=== PATIENT | male | born 1985 | race Caucasian/White ===

== ENCOUNTER 2017-11-15 18:28 | Emergency (ER) | payer MEDICARE, MEDICAID, SELFPAY ==
[2017-11-15 18:38] VITALS: BP 157/100; PULSE 99; RESP 20; TEMP 36.6; O2SAT 97
[2017-11-15 20:13] VITALS: BP 156/97; PULSE 101; O2SAT 100
[2017-11-15] MEDS: LORazepam 0.5 MG TABLET 1 MG PO (20:30)
[2017-11-15 20:44] LABS: Add Manual Diff / Slide Review NO; Basophils Percent Auto 0.5 % (0-2); Eosinophils Percent Auto 0.1 % (2-4); Hematocrit 45.4 % (41-53); Hemoglobin 15.7 g/dL (13.5-17.5); Mean Corpuscular HGB Conc 34.6 % (30-36); Mean Corpuscular Hemoglobin 30.3 PG (26-34); Mean Corpuscular Volume 87.5 fL (80-100); Monocytes Percent Auto 6.5 % (3-14); Neutrophils Absolute Auto 11200 /uL (3000-5900); Neutrophils Percent Auto 81.9 % (50-75); Platelet Count 112 X10^3/uL (150-400); Red Blood Cell Count 5.19 X10^6/uL (4.5-5.9); Red Cell Distribution Width 14.5 % (11.6-14.8); White Blood Cell Count 13.6 X10^3/uL (4.5-11.0)
[2017-11-15 20:57] LABS: Acetaminophen < 10 ug/dL (10-30); Alanine Aminotransferase 41 IU/L (21-72); Albumin 5.2 g/dL (3.5-5.0); Albumin Globulin Ratio 1.6 (1.0-2.8); Alkaline Phosphatase 114 U/L (38-126); Aspartate Aminotransferase 67 IU/L (17-59); BUN Creatinine Ratio 32.2 (6-22); Bilirubin Total 2.8 mg/dL (0.2-1.3); Blood Urea Nitrogen 29 mg/dL (9-20); Calcium 9.6 mg/dL (8.4-10.2); Carbon Dioxide 21 mmol/L (22-32); Chloride 98 mmol/L (98-107); Estimated Glomerular Filt Rate > 60.0 mL/min (>60); Ethanol (ETOH) < 10 mg/dL; Globulin 3.3 g/dL (1.7-4.1); Glucose 81 mg/dL (70-100); HEMOLYSIS < 15 (0-50); Potassium 4.5 mmol/L (3.4-5.1); Salicylate < 1.0 mg/dL (<20); Sodium 136 mmol/L (137-145); Total Protein 8.5 g/dL (6.3-8.2)
[2017-11-15 22:00] VITALS: BP 151/101; PULSE 114; O2SAT 97
[2017-11-15 22:10] LABS: Urine Tetrahydrocannabinol Positive (Negative)
[2017-11-15 22:11] LABS: Urine Amphetamines Positive (Negative); Urine Barbiturates Negative (Negative); Urine Benzodiazepines Negative (Negative); Urine Cocaine Negative (Negative); Urine MDMA Positive (Negative); Urine Methadone Negative (Negative); Urine Methamphetamines Positive (Negative); Urine Morphine/Opi cutoff 2000 Negative (Negative); Urine Oxycodone Negative (Negative); Urine Phencyclidine Negative (Negative); Urine Tricyclic Antidepressant Negative (Negative)
[2017-11-15 23:10] VITALS: BP 157/83; PULSE 132; O2SAT 98
[2017-11-16 00:15] VITALS: BP 180/102; PULSE 120; O2SAT 94
[2017-11-16] MEDS: SODIUM CHLORIDE 0.9% 1,000 ML 1000 ML IV (00:22)
--- NOTE | 2017-11-16 00:22 | ED_ITS ---
HPI - Overdose <Noel Gar DO - Last Filed: 11/18/17 07:17> General Chief Complaint: Toxicology Problem Stated Complaint: MULTIPLE COMPLAINTS, AGITATED Time Seen by Provider: 11/15/17 18:31 Source: patient Mode of arrival: ambulatory Limitations: altered mental status History of Present Illness HPI Narrative: Patient presents to the emergency department feeling bit paranoid and agitated. He is speaking nonsensically and clearly pressured. He admits to using illicit drugs including methamphetamines intravenously and suspects other medications but is unclear what he may have taken. He is guarding his airway just fine but pacing and diaphoretic. MD complaint: accidental overdose Onset (ago): hour(s) Context: Accidental Overdose: wanted to get high Associated symptoms: paranoia, hallucinations, nausea/vomiting and palpitations Related Data Allergies Allergy/AdvReac Type Severity Reaction Status Date / Time Sulfa (Sulfonamide Allergy Verified 11/15/17 18:38 Antibiotics) Review of Systems <Noel Gar DO - Last Filed: 11/18/17 07:17> Review of Systems All systems reviewed & are unremarkable except as noted in HPI and below Constitutional Denies chills, Denies fever(s), Denies lethargy and Denies weakness Eyes Denies change in vision, Denies eye discharge, Denies irritation and Denies loss of vision ENT Ears, Nose, Mouth, and Throat: Denies change in voice, Denies neck pain and Denies sore throat Cardiovascular Denies chest pain, Denies irregular heart rhythm, Denies lightheadedness, Denies palpitations, Denies dyspnea, Denies dyspnea on exertion and Denies orthopnea Respiratory Denies cough, Denies dyspnea, Denies dyspnea on exertion and Denies wheezing Gastrointestinal Gastrointestinal: Denies abdominal pain, Denies change in bowel habits, Denies diarrhea, Denies nausea and Denies vomiting Genitourinary Denies hematuria, Denies flank pain, Denies urinary incontinence and Denies urinary urgency Musculoskeletal Denies neck pain Integumentary/Breasts Denies pruritus, Denies erythema, Denies rash and Denies wounds Neurologic Reports confusion, Denies loss of vision and Denies weakness Psychiatric Denies anxiety, Reports confusion, Denies depression, Reports irritability, Reports paranoia, Reports hallucinations, Denies homicidal ideation and Denies suicidal ideation Endocrine Denies palpitations Hematologic/Lymphatic Denies easy bruising Allergic/Immunologic Denies wheezing Exam <Noel Gar, DO - Last Filed: 11/18/17 07:17> Narrative Exam Narrative: 32-year-old male who is pleasant but clearly altered. Pacing with pressured speech and flight of ideas. Initial Vital Signs Initial Vital Signs: Vital Signs Temperature 97.8 F 11/15/17 18:38 Pulse Rate 99 H 11/15/17 18:38 Respiratory Rate 20 11/15/17 18:38 Blood Pressure 157/100 H 11/15/17 18:38 Pulse Oximetry 97 11/15/17 18:38 Const General: cooperative, well developed, in distress, anxious, diaphoretic, disheveled and intoxicated appearing Nutritional Appearance: well nourished Orientation: alert, awake, oriented x3 and not confused Eyes General: appearance normal, both eyes and all related structures Eyelids: eyelids normal Conjunctivae: conjunctivae normal Sclera: sclerae normal Pupils: PERRL and dilated bilaterally EOM: EOM intact bilaterally Neck Neck: normal visual inspection, trachea midline, No lymphadenopathy, No midline deformity and No JVD Lymphatic: No lymphedema Resp Effort & Inspection: normal respiratory effort, able to speak in complete sentences, no respiratory distress and no use of accessory muscles Auscultation: clear to auscultation bilaterally, no rales, no rhonchi and no wheezes GI Inspection: non-distended Palpation: soft, no hepatosplenomegaly, No guarding, No pulsatile mass and No tender Auscultation: normal bowel sounds Back/Spine/Pelvis Back: No CVA tenderness Cervical Spine: cervical ROM normal and No pain with cervical ROM Thoracic/Lumbar Spine: thoracic and lumbar spine normal to inspection Skin General: warm Wounds: no wounds Hair: normal Neuro General: alert, awake and no meningeal signs Cognition: normal cognition Gait: normal gait Motor: muscle tone normal throughout Sensory Exam: no sensory deficits noted Extrem General: full ROM, no clubbing, cyanosis or edema, no pedal edema and no calf tenderness Psych Appearance: disheveled Speech and Movement: agitated, pressured speech and restless Mood: paranoid Affect: animated and anxious affect Attitude: guarded Thought Process: flight of ideas and illogical Thought Content: compulsions and hallucinations <Laith Lewis, DO - Last Filed: 11/16/17 07:23> Initial Vital Signs Initial Vital Signs: Vital Signs Temperature 97.8 F 11/15/17 18:38 Pulse Rate 99 H 11/15/17 18:38 Respiratory Rate 20 11/15/17 18:38 Blood Pressure 157/100 H 11/15/17 18:38 Pulse Oximetry 97 11/15/17 18:38 Course <Noel Gar DO - Last Filed: 11/18/17 07:17> Orders Ordered: Discontinued Medications Haloperidol (Haldol) 5 mg PO NOW ONE Stop: 11/16/17 00:15 Last Admin: 11/16/17 00:27 Dose: 5 mg Sodium Chloride (Normal Saline 0.9%) 1,000 mls @ 1,000 mls/hr IV BOLUS ONE Stop: 11/16/17 01:13 Last Infusion: 11/16/17 01:58 Dose: 0 mls/hr Admin: 11/16/17 00:22 Dose: 1,000 mls/hr Lorazepam (Ativan) 1 mg PO NOW ONE Stop: 11/15/17 20:22 Last Admin: 11/15/17 20:27 Dose: Lorazepam (Ativan) 1 mg PO NOW ONE Stop: 11/15/17 20:29 Last Admin: 11/15/17 20:30 Dose: 1 mg Lorazepam (Ativan) 2 mg IV NOW ONE Stop: 11/16/17 01:29 Last Admin: 11/16/17 01:33 Dose: 2 mg Reevaluation(s) Reevaluation #1: Additional subtle labs are unremarkable, rapid drug screen demonstrating more intoxicants than the patient admitted to. He is becoming more tachycardic and diaphoretic, IV placed an additional meds given Vital Signs - 8 hr 11/16/17 00:15 11/16/17 01:03 11/16/17 02:03 Pulse Rate 120 H 120 H 105 H Respiratory Rate 18 Blood Pressure [Left Arm] 180/102 H 152/83 H 123/55 H Pulse Oximetry 94 100 100 11/16/17 04:37 Pulse Rate Respiratory Rate 15 Blood Pressure [Left Arm] 123/77 H Pulse Oximetry <Laith Lewis DO - Last Filed: 11/16/17 07:23> Orders Ordered: Discontinued Medications Haloperidol (Haldol) 5 mg PO NOW ONE Stop: 11/16/17 00:15 Last Admin: 11/16/17 00:27 Dose: 5 mg Sodium Chloride (Normal Saline 0.9%) 1,000 mls @ 1,000 mls/hr IV BOLUS ONE Stop: 11/16/17 01:13 Last Infusion: 11/16/17 01:58 Dose: 0 mls/hr Admin: 11/16/17 00:22 Dose: 1,000 mls/hr Lorazepam (Ativan) 1 mg PO NOW ONE Stop: 11/15/17 20:22 Last Admin: 11/15/17 20:27 Dose: Lorazepam (Ativan) 1 mg PO NOW ONE Stop: 11/15/17 20:29 Last Admin: 11/15/17 20:30 Dose: 1 mg Lorazepam (Ativan) 2 mg IV NOW ONE Stop: 11/16/17 01:29 Last Admin: 11/16/17 01:33 Dose: 2 mg Reevaluation(s) Time: 07:17 Reevaluation #2: Pt now awake and feeling much better. Feels safe to be discharged and would like to go. Denies SI or HI. Plans to go to [facility] where he is staying temporarily. All questions answered. Vital Signs - 8 hr 11/16/17 00:15 11/16/17 01:03 11/16/17 02:03 Pulse Rate 120 H 120 H 105 H Respiratory Rate 18 Blood Pressure [Left Arm] 180/102 H 152/83 H 123/55 H Pulse Oximetry 94 100 100 11/16/17 04:37 Pulse Rate Respiratory Rate 15 Blood Pressure [Left Arm] 123/77 H Pulse Oximetry MDM - Overdose <Noel Gar DO - Last Filed: 11/18/17 07:17> Lab Data Result diagrams: 11/15/17 20:29 11/15/17 20:29 Lab Results 11/15/17 11/15/17 11/15/17 Range/Units 20:29 20:29 21:48 WBC 13.6 H (4.5-11.0) X10^3/uL RBC 5.19 (4.5-5.9) X10^6/uL Hgb 15.7 (13.5-17.5) g/dL Hct 45.4 (41-53) % MCV 87.5 (80-100) fL MCH 30.3 (26-34) PG MCHC 34.6 (30-36) % RDW 14.5 (11.6-14.8) % Plt Count 112 L (150-400) X10^3/uL Neut % (Auto) 81.9 H (50-75) % Lymph % (Auto) 11.0 L (25-40) % Mineral % (Auto) 6.5 (3-14) % Eos % (Auto) 0.1 L (2-4) % Baso % (Auto) 0.5 (0-2) % Neut # (Auto) 80169 H (3381-7173) /uL Sodium 136 L (137-145) mmol/L Potassium 4.5 (3.4-5.1) mmol/L Chloride 98 (98-107) mmol/L Carbon Dioxide 21 L (22-32) mmol/L BUN 29 H (9-20) mg/dL Creatinine 0.90 (0.66-1.25) mg/dL Estimated GFR > 60.0 (>60) mL/min BUN/Creatinine Ratio 32.2 H (6-22) Glucose 81 (70-100) mg/dL Calcium 9.6 (8.4-10.2) mg/dL Total Bilirubin 2.8 H (0.2-1.3) mg/dL AST 67 H (17-59) IU/L ALT 41 (21-72) IU/L Alkaline Phosphatase 114 (38-126) U/L Total Protein 8.5 H (6.3-8.2) g/dL Albumin 5.2 H (3.5-5.0) g/dL Globulin 3.3 (1.7-4.1) g/dL Albumin/Globulin Ratio 1.6 (1.0-2.8) Salicylates < 1.0 (<20) mg/dL Urine Opiates Screen Negative (Negative) Ur Oxycodone Screen Negative (Negative) Urine Methadone Screen Negative (Negative) Acetaminophen < 10 L (10-30) ug/dL Ur Barbiturates Screen Negative (Negative) U Tricyclic Antidepress Negative (Negative) Ur Phencyclidine Scrn Negative (Negative) Ur Amphetamines Screen Positive H (Negative) U Methamphetamines Scrn Positive H (Negative) Ur MDMA Scrn (Ecstasy) Positive H (Negative) U Benzodiazepines Scrn Negative (Negative) Urine Cocaine Screen Negative (Negative) U Marijuana (THC) Screen Positive H (Negative) Ethyl Alcohol < 10 mg/dL <Laith Lewis, DO - Last Filed: 11/16/17 07:23> Lab Data Lab Results 11/15/17 11/15/17 11/15/17 Range/Units 20:29 20:29 21:48 WBC 13.6 H (4.5-11.0) X10^3/uL RBC 5.19 (4.5-5.9) X10^6/uL Hgb 15.7 (13.5-17.5) g/dL Hct 45.4 (41-53) % MCV 87.5 (80-100) fL MCH 30.3 (26-34) PG MCHC 34.6 (30-36) % RDW 14.5 (11.6-14.8) % Plt Count 112 L (150-400) X10^3/uL Neut % (Auto) 81.9 H (50-75) % Lymph % (Auto) 11.0 L (25-40) % Mineral % (Auto) 6.5 (3-14) % Eos % (Auto) 0.1 L (2-4) % Baso % (Auto) 0.5 (0-2) % Neut # (Auto) 03622 H (8236-5027) /uL Sodium 136 L (137-145) mmol/L Potassium 4.5 (3.4-5.1) mmol/L Chloride 98 (98-107) mmol/L Carbon Dioxide 21 L (22-32) mmol/L BUN 29 H (9-20) mg/dL Creatinine 0.90 (0.66-1.25) mg/dL Estimated GFR > 60.0 (>60) mL/min BUN/Creatinine Ratio 32.2 H (6-22) Glucose 81 (70-100) mg/dL Calcium 9.6 (8.4-10.2) mg/dL Total Bilirubin 2.8 H (0.2-1.3) mg/dL AST 67 H (17-59) IU/L ALT 41 (21-72) IU/L Alkaline Phosphatase 114 (38-126) U/L Total Protein 8.5 H (6.3-8.2) g/dL Albumin 5.2 H (3.5-5.0) g/dL Globulin 3.3 (1.7-4.1) g/dL Albumin/Globulin Ratio 1.6 (1.0-2.8) Salicylates < 1.0 (<20) mg/dL Urine Opiates Screen Negative (Negative) Ur Oxycodone Screen Negative (Negative) Urine Methadone Screen Negative (Negative) Acetaminophen < 10 L (10-30) ug/dL Ur Barbiturates Screen Negative (Negative) U Tricyclic Antidepress Negative (Negative) Ur Phencyclidine Scrn Negative (Negative) Ur Amphetamines Screen Positive H (Negative) U Methamphetamines Scrn Positive H (Negative) Ur MDMA Scrn (Ecstasy) Positive H (Negative) U Benzodiazepines Scrn Negative (Negative) Urine Cocaine Screen Negative (Negative) U Marijuana (THC) Screen Positive H (Negative) Ethyl Alcohol < 10 mg/dL Discharge Plan Departure Patient Disposition: Home, Self-Care Clinical Impression: Methamphetamine abuse Discharge Date/Time: 11/16/17 07:38 Interventions: ED Discharge Assessment Last Done: 11/16/17 07:37 Instructions: Methamphetamine Activity Restrictions/Additional Instructions: Thank you for trusting is with your care today. Please avoid methamphetamine use. Return to the ER for new or worsening symptoms. ED Cosign/Signout <Noel Gar DO - Last Filed: 11/18/17 07:17> Cosign ED Attending Abdi Attestation: I was immediately available in the department for consultation. Documentation has been reviewed. I agree with assessment and plan.
[2017-11-16] MEDS: HALOPERIDOL 5 MG TABLET PO (00:27)
[2017-11-16 01:03] VITALS: BP 152/83; PULSE 120; O2SAT 100
[2017-11-16] MEDS: LORazepam 2 MG/ML SYRINGE IV (01:33)
[2017-11-16 02:03] VITALS: BP 123/55; PULSE 105; RESP 18; O2SAT 100
[2017-11-16 04:37] VITALS: BP 123/77; RESP 15
[2017-11-16 07:23] VITALS: BP 125/73; PULSE 124; RESP 20; O2SAT 98
== END 2017-11-16 07:38 | disposition home or self-care (01) ==
PROVIDERS: Emergency Medicine; Emergency Provider Emergency Medicine
DX: F15.10 Other stimulant abuse, uncomplicated (principal)
CPT/HCPCS: 36415; 80053; 80305; 80320; 80329; 81003; 85025; 96361; 96374; 99284; G0480; J2060

== ENCOUNTER 2018-05-10 10:45 | Emergency (ER) | payer MEDICARE, MEDICAID, SELFPAY ==
--- NOTE | 2018-05-10 11:00 | ED_ITS ---
HPI - Psych <Lianne Lebron DO - Last Filed: 05/11/18 18:23> General Chief Complaint: Psychiatric Symptoms Stated Complaint: meds Time Seen by Provider: 05/10/18 10:50 Source: patient Limitations: altered mental status History of Present Illness HPI Narrative: Patient is a 32-year-old male who presents with paranoia. His clothes are soaking wet he feels as though someone put something in his clothes. He is searching them meticulously. He is calm and cooperative obviously paranoid. He does have a history of methamphetamine abuse possible schizophrenia. He was here in November with a similar presentation he received Haldol multiple doses of Ativan once he woke up he was able to be discharged. He apparently does take Seroquel 3 times a day unclear taking it. Related Data Home Medications Medication Instructions Recorded Confirmed quetiapine [Seroquel] 100 mg PO TID 05/10/18 05/10/18 Allergies Allergy/AdvReac Type Severity Reaction Status Date / Time Sulfa (Sulfonamide Allergy Verified 05/10/18 10:56 Antibiotics) Review of Systems <Lianne Lebron DO - Last Filed: 05/11/18 18:23> Review of Systems unobtainable due to mental condition Constitutional Denies fever(s) Eyes Denies blurry vision and Denies change in vision Cardiovascular Denies chest pain and Denies dyspnea Respiratory Denies dyspnea Gastrointestinal Gastrointestinal: Denies vomiting Musculoskeletal Denies abnormal gait Integumentary/Breasts Denies lesions Neurologic Denies abnormal gait Exam <Lianne Lebron DO - Last Filed: 05/11/18 18:23> Initial Vital Signs Initial Vital Signs: Vital Signs Temperature 99.0 F 05/10/18 11:14 Pulse Rate 140 H 05/10/18 11:14 Respiratory Rate 22 05/10/18 11:14 Blood Pressure 165/109 H 05/10/18 11:14 Pulse Oximetry 94 05/10/18 11:14 Const General: cooperative and other (Paranoid pacing room searching through clothes) Eyes General: appearance normal, both eyes and all related structures Neck Neck: normal visual inspection and full ROM Chest Chest: normal inspection of the chest Resp Effort & Inspection: able to speak in complete sentences Auscultation: clear to auscultation bilaterally, no rhonchi and no wheezes Cardio Rhythm: regular rhythm Heart Sounds: S1 normal and S2 normal GI Palpation: soft and No tender Skin General: no rashes or lesions noted Neuro General: alert and awake Cranial Nerves: CN's II-XI intact bilaterally Psych Appearance: disheveled Speech and Movement: restless <Andrew Shell DO - Last Filed: 05/11/18 00:56> Initial Vital Signs Initial Vital Signs: Vital Signs Temperature 99.0 F 05/10/18 11:14 Pulse Rate 140 H 05/10/18 11:14 Respiratory Rate 22 05/10/18 11:14 Blood Pressure 165/109 H 05/10/18 11:14 Pulse Oximetry 94 05/10/18 11:14 Course <Lianne Lebron, DO - Last Filed: 05/11/18 18:23> Orders Ordered: Discontinued Medications Diphenhydramine HCl (Benadryl) 50 mg IV NOW ONE Stop: 05/10/18 12:49 Last Admin: 05/10/18 16:05 Dose: 50 mg Haloperidol (Haldol) 5 mg IM NOW ONE Stop: 05/10/18 12:09 Last Admin: 05/10/18 12:17 Dose: 5 mg Sodium Chloride (Normal Saline 0.9%) 1,000 mls @ 1,000 mls/hr IV BOLUS ONE Stop: 05/10/18 13:47 Last Infusion: 05/10/18 14:06 Dose: 0 mls/hr Admin: 05/10/18 13:11 Dose: 1,000 mls/hr Sodium Chloride (Normal Saline 0.9%) 1,000 mls @ 1,000 mls/hr IV BOLUS ONE Stop: 05/10/18 15:04 Last Infusion: 05/10/18 15:05 Dose: 0 mls/hr Admin: 05/10/18 14:06 Dose: 1,000 mls/hr Lorazepam (Ativan) 2 mg IM NOW ONE Stop: 05/10/18 12:09 Last Admin: 05/10/18 12:16 Dose: 2 mg Lorazepam (Ativan) 2 mg IV NOW ONE Stop: 05/10/18 12:49 Last Admin: 05/10/18 16:06 Dose: 2 mg Nicotine (Nicoderm) 21 mg TOP NOW ONE Stop: 05/10/18 17:48 Last Admin: 05/10/18 17:56 Dose: 21 mg Olanzapine (Zyprexa Zydis) 10 mg PO NOW ONE Stop: 05/10/18 11:07 Last Admin: 05/10/18 11:11 Dose: 10 mg Olanzapine (Zyprexa Zydis) 10 mg PO NOW ONE Stop: 05/10/18 16:35 Last Admin: 05/10/18 16:38 Dose: 10 mg Vital Signs - 8 hr 05/10/18 21:37 Pulse Rate 116 H Respiratory Rate 18 Blood Pressure [Left Arm] 155/93 H Pulse Oximetry 99 Mental Status Exam Patient Appearance: Unkempt Level of Consciousness: Alert Speech Pattern: Pressured and Rambling Mood Description: Anxious Assessment of Situation Behavior necessitating restraint: Paranoid/Delusional Restraint risks explained to patient: No Restraint risks explained to family: No Comments Additional Comments: Patient initially has been redirectable. However he is no longer redirectable he still is paranoid and confused. He is not threatening but is wanting to leave. At this time he is still gravely disabled and does not understand or have good insight into his illness. Door is locked at this time <Andrew Shell DO - Last Filed: 05/11/18 00:56> Orders Ordered: Discontinued Medications Diphenhydramine HCl (Benadryl) 50 mg IV NOW ONE Stop: 05/10/18 12:49 Last Admin: 05/10/18 16:05 Dose: 50 mg Haloperidol (Haldol) 5 mg IM NOW ONE Stop: 05/10/18 12:09 Last Admin: 05/10/18 12:17 Dose: 5 mg Sodium Chloride (Normal Saline 0.9%) 1,000 mls @ 1,000 mls/hr IV BOLUS ONE Stop: 05/10/18 13:47 Last Infusion: 05/10/18 14:06 Dose: 0 mls/hr Admin: 05/10/18 13:11 Dose: 1,000 mls/hr Sodium Chloride (Normal Saline 0.9%) 1,000 mls @ 1,000 mls/hr IV BOLUS ONE Stop: 05/10/18 15:04 Last Infusion: 05/10/18 15:05 Dose: 0 mls/hr Admin: 05/10/18 14:06 Dose: 1,000 mls/hr Lorazepam (Ativan) 2 mg IM NOW ONE Stop: 05/10/18 12:09 Last Admin: 05/10/18 12:16 Dose: 2 mg Lorazepam (Ativan) 2 mg IV NOW ONE Stop: 05/10/18 12:49 Last Admin: 05/10/18 16:06 Dose: 2 mg Nicotine (Nicoderm) 21 mg TOP NOW ONE Stop: 05/10/18 17:48 Last Admin: 05/10/18 17:56 Dose: 21 mg Olanzapine (Zyprexa Zydis) 10 mg PO NOW ONE Stop: 05/10/18 11:07 Last Admin: 05/10/18 11:11 Dose: 10 mg Olanzapine (Zyprexa Zydis) 10 mg PO NOW ONE Stop: 05/10/18 16:35 Last Admin: 05/10/18 16:38 Dose: 10 mg Vital Signs - 8 hr 05/10/18 21:37 Pulse Rate 116 H Respiratory Rate 18 Blood Pressure [Left Arm] 155/93 H Pulse Oximetry 99 MDM - Psych <Lianne Lebron DO - Last Filed: 05/11/18 18:23> Lab Data Attestation: I reviewed the patient's lab results. Result diagrams: 05/10/18 11:25 05/10/18 11:25 Lab Results 05/10/18 05/10/18 05/10/18 Range/Units 11:25 11:25 12:54 WBC 18.5 H (4.5-11.0) X10^3/uL RBC 5.49 (4.5-5.9) X10^6/uL Hgb 17.0 (13.5-17.5) g/dL Hct 48.6 (41-53) % MCV 88.6 (80-100) fL MCH 31.0 (26-34) PG MCHC 35.0 (30-36) % RDW 13.5 (11.6-14.8) % Plt Count 142 L (150-400) X10^3/uL Neut % (Auto) 83.8 H (50-75) % Lymph % (Auto) 9.7 L (25-40) % [place] % (Auto) 6.1 (3-14) % Eos % (Auto) 0.2 L (2-4) % Baso % (Auto) 0.2 (0-2) % Neut # (Auto) 41555 H (0514-9453) /uL Sodium 147 H (137-145) mmol/L Potassium 4.7 (3.4-5.1) mmol/L Chloride 103 (98-107) mmol/L Carbon Dioxide 24 (22-32) mmol/L BUN 27 H (9-20) mg/dL Creatinine 1.20 (0.66-1.25) mg/dL Estimated GFR > 60.0 (>60) mL/min BUN/Creatinine Ratio 22.5 H (6-22) Glucose 92 (70-100) mg/dL Calcium 9.8 (8.4-10.2) mg/dL Total Bilirubin 1.4 H (0.2-1.3) mg/dL AST 49 (17-59) IU/L ALT 53 (21-72) IU/L Alkaline Phosphatase 115 (38-126) U/L Total Protein 9.2 H (6.3-8.2) g/dL Albumin 5.6 H (3.5-5.0) g/dL Globulin 3.6 (1.7-4.1) g/dL Albumin/Globulin Ratio 1.6 (1.0-2.8) Urine RBC (0-5/HPF) Urine WBC (0-5/HPF) Ur Squamous Epith Cells Amorphous Sediment Urine Bacteria (None) Hyaline Casts (None) Urine Mucus (Negative) Urine Sperm Ur Culture Indicated? Micro UA Comment Urine Opiates Screen Positive H (Negative) Ur Oxycodone Screen Negative (Negative) Urine Methadone Screen Negative (Negative) Ur Barbiturates Screen Negative (Negative) U Tricyclic Antidepress Positive H (Negative) Ur Phencyclidine Scrn Positive H (Negative) Ur Amphetamines Screen Positive H (Negative) U Methamphetamines Scrn Positive H (Negative) Ur MDMA Scrn (Ecstasy) Negative (Negative) U Benzodiazepines Scrn Negative (Negative) Urine Cocaine Screen Positive H (Negative) U Marijuana (THC) Screen Positive H (Negative) Ethyl Alcohol < 10 mg/dL 05/10/18 Range/Units 12:54 WBC (4.5-11.0) X10^3/uL RBC (4.5-5.9) X10^6/uL Hgb (13.5-17.5) g/dL Hct (41-53) % MCV (80-100) fL MCH (26-34) PG MCHC (30-36) % RDW (11.6-14.8) % Plt Count (150-400) X10^3/uL Neut % (Auto) (50-75) % Lymph % (Auto) (25-40) % [place] % (Auto) (3-14) % Eos % (Auto) (2-4) % Baso % (Auto) (0-2) % Neut # (Auto) (2117-0751) /uL Sodium (137-145) mmol/L Potassium (3.4-5.1) mmol/L Chloride (98-107) mmol/L Carbon Dioxide (22-32) mmol/L BUN (9-20) mg/dL Creatinine (0.66-1.25) mg/dL Estimated GFR (>60) mL/min BUN/Creatinine Ratio (6-22) Glucose (70-100) mg/dL Calcium (8.4-10.2) mg/dL Total Bilirubin (0.2-1.3) mg/dL AST (17-59) IU/L ALT (21-72) IU/L Alkaline Phosphatase (38-126) U/L Total Protein (6.3-8.2) g/dL Albumin (3.5-5.0) g/dL Globulin (1.7-4.1) g/dL Albumin/Globulin Ratio (1.0-2.8) Urine RBC 5-10/hpf H (0-5/HPF) Urine WBC None seen (0-5/HPF) Ur Squamous Epith Cells 5-10 /hpf H Amorphous Sediment 1+ Urine Bacteria None seen (None) Hyaline Casts 5-10/lpf (None) Urine Mucus 2+ H (Negative) Urine Sperm 2+ Ur Culture Indicated? Cult not indicated Micro UA Comment Not Reportable Urine Opiates Screen (Negative) Ur Oxycodone Screen (Negative) Urine Methadone Screen (Negative) Ur Barbiturates Screen (Negative) U Tricyclic Antidepress (Negative) Ur Phencyclidine Scrn (Negative) Ur Amphetamines Screen (Negative) U Methamphetamines Scrn (Negative) Ur MDMA Scrn (Ecstasy) (Negative) U Benzodiazepines Scrn (Negative) Urine Cocaine Screen (Negative) U Marijuana (THC) Screen (Negative) Ethyl Alcohol mg/dL Urine Dip Bedside Urine Glucose Negative Bedside Urine Bilirubin - Negative Bedside Urine Ketone - Negative Urine Specific [place] 1.030 Bedside Urine Occult Blood +/- Bedside Urine pH 6.0 Bedside Urine Protein ++ 100 Bedside Urine Urobilinogen - Negative Bedside Urine Nitrite - Negative Bedside Urine Leukocytes - Negative Esterase MDM Narrative Medical decision making narrative: The patient appears to be gravely disabled no insight is paranoid thoughts of the something in his clothes are consuming him. He continues to go over and over his clothes. He is taking his clothes wash them and dried them because they were soaking wet. He is becoming a little more agitated. Requiring medication. I did give him Geodon initially however it did not seem to help. He was then given Haldol and his Ativan. A he was moved over to room 13. His he was able to go to sleep and rate he was agreeable to having IV. He has remained quite tachycardic so IV fluids were started. Tachycardia is likely due to his multiple sympathomimetic stimulator such as methamphetamine, cocaine amphetamine, and PCP. Patient has been monitored in the ED for 4 0.5 hr. I did call [facility] is he continues to be paranoid. They recommend watching him for a full 6 hr to see if the stimulants have his lost their effect. Patient continues to escalate just becoming more anxious and paranoid he is given more medication. [facility] is coming around 8:00 p.m.. Patient signed out to Dr. Shell for further evaluation. <Andrew Shell, - Last Filed: 05/11/18 00:56> Lab Data Lab Results 05/10/18 05/10/18 05/10/18 Range/Units 11:25 11:25 12:54 WBC 18.5 H (4.5-11.0) X10^3/uL RBC 5.49 (4.5-5.9) X10^6/uL Hgb 17.0 (13.5-17.5) g/dL Hct 48.6 (41-53) % MCV 88.6 (80-100) fL MCH 31.0 (26-34) PG MCHC 35.0 (30-36) % RDW 13.5 (11.6-14.8) % Plt Count 142 L (150-400) X10^3/uL Neut % (Auto) 83.8 H (50-75) % Lymph % (Auto) 9.7 L (25-40) % [place] % (Auto) 6.1 (3-14) % Eos % (Auto) 0.2 L (2-4) % Baso % (Auto) 0.2 (0-2) % Neut # (Auto) 51526 H (9571-2940) /uL Sodium 147 H (137-145) mmol/L Potassium 4.7 (3.4-5.1) mmol/L Chloride 103 (98-107) mmol/L Carbon Dioxide 24 (22-32) mmol/L BUN 27 H (9-20) mg/dL Creatinine 1.20 (0.66-1.25) mg/dL Estimated GFR > 60.0 (>60) mL/min BUN/Creatinine Ratio 22.5 H (6-22) Glucose 92 (70-100) mg/dL Calcium 9.8 (8.4-10.2) mg/dL Total Bilirubin 1.4 H (0.2-1.3) mg/dL AST 49 (17-59) IU/L ALT 53 (21-72) IU/L Alkaline Phosphatase 115 (38-126) U/L Total Protein 9.2 H (6.3-8.2) g/dL Albumin 5.6 H (3.5-5.0) g/dL Globulin 3.6 (1.7-4.1) g/dL Albumin/Globulin Ratio 1.6 (1.0-2.8) Urine RBC (0-5/HPF) Urine WBC (0-5/HPF) Ur Squamous Epith Cells Amorphous Sediment Urine Bacteria (None) Hyaline Casts (None) Urine Mucus (Negative) Urine Sperm Ur Culture Indicated? Micro UA Comment Urine Opiates Screen Positive H (Negative) Ur Oxycodone Screen Negative (Negative) Urine Methadone Screen Negative (Negative) Ur Barbiturates Screen Negative (Negative) U Tricyclic Antidepress Positive H (Negative) Ur Phencyclidine Scrn Positive H (Negative) Ur Amphetamines Screen Positive H (Negative) U Methamphetamines Scrn Positive H (Negative) Ur MDMA Scrn (Ecstasy) Negative (Negative) U Benzodiazepines Scrn Negative (Negative) Urine Cocaine Screen Positive H (Negative) U Marijuana (THC) Screen Positive H (Negative) Ethyl Alcohol < 10 mg/dL 05/10/18 Range/Units 12:54 WBC (4.5-11.0) X10^3/uL RBC (4.5-5.9) X10^6/uL Hgb (13.5-17.5) g/dL Hct (41-53) % MCV (80-100) fL MCH (26-34) PG MCHC (30-36) % RDW (11.6-14.8) % Plt Count (150-400) X10^3/uL Neut % (Auto) (50-75) % Lymph % (Auto) (25-40) % [place] % (Auto) (3-14) % Eos % (Auto) (2-4) % Baso % (Auto) (0-2) % Neut # (Auto) (9965-8418) /uL Sodium (137-145) mmol/L Potassium (3.4-5.1) mmol/L Chloride (98-107) mmol/L Carbon Dioxide (22-32) mmol/L BUN (9-20) mg/dL Creatinine (0.66-1.25) mg/dL Estimated GFR (>60) mL/min BUN/Creatinine Ratio (6-22) Glucose (70-100) mg/dL Calcium (8.4-10.2) mg/dL Total Bilirubin (0.2-1.3) mg/dL AST (17-59) IU/L ALT (21-72) IU/L Alkaline Phosphatase (38-126) U/L Total Protein (6.3-8.2) g/dL Albumin (3.5-5.0) g/dL Globulin (1.7-4.1) g/dL Albumin/Globulin Ratio (1.0-2.8) Urine RBC 5-10/hpf H (0-5/HPF) Urine WBC None seen (0-5/HPF) Ur Squamous Epith Cells 5-10 /hpf H Amorphous Sediment 1+ Urine Bacteria None seen (None) Hyaline Casts 5-10/lpf (None) Urine Mucus 2+ H (Negative) Urine Sperm 2+ Ur Culture Indicated? Cult not indicated Micro UA Comment Not Reportable Urine Opiates Screen (Negative) Ur Oxycodone Screen (Negative) Urine Methadone Screen (Negative) Ur Barbiturates Screen (Negative) U Tricyclic Antidepress (Negative) Ur Phencyclidine Scrn (Negative) Ur Amphetamines Screen (Negative) U Methamphetamines Scrn (Negative) Ur MDMA Scrn (Ecstasy) (Negative) U Benzodiazepines Scrn (Negative) Urine Cocaine Screen (Negative) U Marijuana (THC) Screen (Negative) Ethyl Alcohol mg/dL Urine Dip Bedside Urine Glucose Negative Bedside Urine Bilirubin - Negative Bedside Urine Ketone - Negative Urine Specific [place] 1.030 Bedside Urine Occult Blood +/- Bedside Urine pH 6.0 Bedside Urine Protein ++ 100 Bedside Urine Urobilinogen - Negative Bedside Urine Nitrite - Negative Bedside Urine Leukocytes - Negative Esterase MDM Narrative Medical decision making narrative: Dr shell - patient has been calm since care was turned over to me. I reviewed his history and physical exam. His urine drug screen has polysubstance is which could potentially be the cause of his presenting symptoms today. His heart rate has improved. He does have an elevated white blood cell count however there is no signs of infection. This could be demargination from his polysubstance abuse and agitation since arrival here in the emergency department. he was evaluated by [facility] who evaluated the patient and stated that he was calm and alert and oriented to most questioning. Still present some confusion patient denied suicidal homicidal ideation. He was oriented to where he was and his date and where he was going to go after he was discharged. Mental health professional did not feel like the patient met criteria for involuntary mental health long-term. Patient does have an ankle bracelet on however when we discussed with [place] police department they talk with the patient who stated that it was placed by [facility]. The police department call [facility] stated that the patient has not been under their surveillance since 2017. The patient was asking to go home. I went in to evaluate the patient. He again was alert and oriented to self, time, location. He did ask if we could fill his prescription for his mental health medications. He knew the name of his mental health provider. He stated that he was staying at a hotel here in [facility] and was going back to the hotel room after he was discharged. He again denied suicidal homicidal ideation. I feel like the patient was alert and oriented. Had the capacity to make decisions. Did not meet criteria for involuntary mental hold and patient was asking to go home. Will discharge patient. He was instructed he could return to the emergency department at any time. He expressed understanding and agreement this plan. Discharge Plan Departure Patient Disposition: Home Clinical Impression: Polysubstance abuse Discharge Date/Time: 05/10/18 21:40 Interventions: ED Discharge Assessment Last Done: 05/10/18 21:40 Instructions: Drug Abuse and Drug Addiction, DI for Alcohol Abuse Activity Restrictions/Additional Instructions: no driving for the next 24 hr. I recommend that you stop using the recreational drugs and also stop using alcohol. Recommend he contact your psychiatrist for follow-up. You can feel your medications at the pharmacy tomorrow. You can return to the emergency department at any point for new or worsening symptoms Prescriptions: No Action quetiapine [Seroquel] 100 mg Tablet 100 mg PO TID RF: 0
[2018-05-10] MEDS: OLANZapine ODT 10 MG TAB PO ×2 (11:11→16:38)
[2018-05-10 11:14] VITALS: BP 165/109; PULSE 140; RESP 22; TEMP 37.2; O2SAT 94
[2018-05-10 11:32] LABS: Add Manual Diff / Slide Review NO; Basophils Percent Auto 0.2 % (0-2); Eosinophils Percent Auto 0.2 % (2-4); Hematocrit 48.6 % (41-53); Lymphocytes Percent Auto 9.7 % (25-40); Mean Corpuscular Volume 88.6 fL (80-100); Monocytes Percent Auto 6.1 % (3-14); Neutrophils Absolute Auto 15500 /uL (3000-5900); Neutrophils Percent Auto 83.8 % (50-75); Platelet Count 142 X10^3/uL (150-400); Red Blood Cell Count 5.49 X10^6/uL (4.5-5.9); Red Cell Distribution Width 13.5 % (11.6-14.8); White Blood Cell Count 18.5 X10^3/uL (4.5-11.0)
--- NOTE | 2018-05-10 11:34 | PC.NURSE ---
Pt continues to rummage through clothing, belongings and hospital gown / blanket stating 'they are trying to set me up'. Unable to re-direct from thoughts. States he feels very unsafe because 'people are trying to get me'. Unable to verbalize feeling of safety in ED.
[2018-05-10 11:42] LABS: Alanine Aminotransferase 53 IU/L (21-72); Albumin 5.6 g/dL (3.5-5.0); Albumin Globulin Ratio 1.6 (1.0-2.8); Alkaline Phosphatase 115 U/L (38-126); Aspartate Aminotransferase 49 IU/L (17-59); BUN Creatinine Ratio 22.5 (6-22); Bilirubin Total 1.4 mg/dL (0.2-1.3); Blood Urea Nitrogen 27 mg/dL (9-20); Calcium 9.8 mg/dL (8.4-10.2); Carbon Dioxide 24 mmol/L (22-32); Chloride 103 mmol/L (98-107); Estimated Glomerular Filt Rate > 60.0 mL/min (>60); Ethanol (ETOH) < 10 mg/dL; Globulin 3.6 g/dL (1.7-4.1); Glucose 92 mg/dL (70-100); HEMOLYSIS < 15 (0-50); Potassium 4.7 mmol/L (3.4-5.1); Sodium 147 mmol/L (137-145); Total Protein 9.2 g/dL (6.3-8.2)
--- NOTE | 2018-05-10 12:09 | PC.NURSE ---
Continues to put clothing in sink to wash them. Water all over floor. Moved to room 13
[2018-05-10] MEDS: LORazepam 2 MG/ML SYRINGE IM (12:16)
[2018-05-10] MEDS: HALOPERIDOL 5 MG/ML VIAL IM (12:17)
--- NOTE | 2018-05-10 12:28 | PC.NURSE ---
Pt moved to room 13 as he was pouring water over his belongings in room 7 and continues to be non redirectable. Repeat vs reveal continued tachycardia. Dr. Lebron updated.
[2018-05-10 12:30] VITALS: BP 159/114; PULSE 139; RESP 20; O2SAT 95
[2018-05-10 12:56] LABS: Bacteria Urine None Seen; WBC Urine None Seen (0-5/HPF)
[2018-05-10 13:07] LABS: Urine Amphetamines Positive (Negative); Urine Cocaine Positive (Negative); Urine Methamphetamines Positive (Negative); Urine Morphine/Opi cutoff 2000 Positive (Negative); Urine Tetrahydrocannabinol Positive (Negative)
[2018-05-10 13:08] LABS: Urine Barbiturates Negative (Negative); Urine Benzodiazepines Negative (Negative); Urine MDMA Negative (Negative); Urine Methadone Negative (Negative); Urine Oxycodone Negative (Negative); Urine Phencyclidine Positive (Negative); Urine Tricyclic Antidepressant Positive (Negative)
[2018-05-10 13:11] LABS: Amorphous Sediment Urine 1+; RBC Urine 5-10/HPF (0-5/HPF); Squamous Epithelial Cell Urine 5-10 /HPF
[2018-05-10] MEDS: SODIUM CHLORIDE 0.9% 1,000 ML 1000 ML IV ×2 (13:11→14:06)
[2018-05-10 13:12] LABS: Culture Indicated Urine Cult Not Indicated; Hyaline Casts Urine 5-10/LPF; Mucus Urine 2+ (Negative); Sperm Urine 2+
[2018-05-10 13:15] VITALS: BP 125/86; PULSE 110; RESP 20; TEMP 37.1; O2SAT 95
--- NOTE | 2018-05-10 13:15 | PC.NURSE ---
Pt now sleepy, easily arousable w/ easy work of breathing. IV fluids infusing. Call taveras in place. Door open. Housekeeping is drying clothing / back pack.
[2018-05-10 15:32] VITALS: BP 141/91; PULSE 118; RESP 20; O2SAT 100
[2018-05-10] MEDS: diphenhydrAMINE 50 MG/ML VIAL IV (16:05)
[2018-05-10] MEDS: LORazepam 2 MG/ML SYRINGE IV (16:06)
--- NOTE | 2018-05-10 16:35 | PC.NURSE ---
Wandering and poorly re-directable. MD reeval. New orders recieved for zyprexa 10 mg po
--- NOTE | 2018-05-10 16:35 | PC.NURSE ---
Pt was wondering into and out of the room, was redirted by nurse, RANDY and . explained to pt that someone was coming was coming to talk to pt ([facility]), pt then used the bathroom was redirted back to room, given warm blanket and is not sitting on bed, Bed in lowest position, door remains open and q15 checks
--- NOTE | 2018-05-10 16:46 | PC.NURSE ---
Pt is sweatpants and gown. Socks provided. clothes and shoes removed and placed in locked cabinet. has his paperwork drying on floor in room. Being provided with food and a variety of juice, water and soda
--- NOTE | 2018-05-10 17:08 | PC.NURSE ---
Security outside of room to help redirect pt. Pt is leving room and taking things off counter. The things are removed from room.
--- NOTE | 2018-05-10 17:23 | PC.NURSE ---
Pt is 1:1 with staff as wandering behaviors and harder to redirect. consulting [facility] for assistence
--- NOTE | 2018-05-10 17:35 | PC.NURSE ---
Bed removed from room as pt taking it apart. Mattress on floor. Given meds but not decreasing symptoms
--- NOTE | 2018-05-10 17:41 | PC.NURSE ---
Called [facility]P: Gave report to triage. States that he will dispatch a DCR for pt evaluation. ETA @[phone].
[2018-05-10] MEDS: NICOTINE 21 MG PATCH TOP (17:56)
--- NOTE | 2018-05-10 18:27 | PC.NURSE ---
Per DEBRA Nguyen, a call is made to [place] [employer] about pt as is wearing an ankle bracelet (house arrest?) and states that he will not be able to find placement for this pt as wearing this device
--- NOTE | 2018-05-10 18:30 | PC.NURSE ---
Pt sitting on bed now.
--- NOTE | 2018-05-10 18:46 | PC.NURSE ---
[employer] here to talk to pt. Pt has no record of police activity and they have contacted [facility] for information about this pt.
[2018-05-10 21:37] VITALS: BP 155/93; PULSE 116; RESP 18; O2SAT 99
== END 2018-05-10 21:40 | disposition home or self-care (01) ==
PROVIDERS: Emergency Medicine; Emergency Provider Emergency Medicine
DX: F19.10 Other psychoactive substance abuse, uncomplicated (principal)
CPT/HCPCS: 36415; 36591; 80053; 80305; 80320; 81003; 81015; 85025; 96361; 96372; 96374; 96375; 99285; J1200; J1630; J2060

== ENCOUNTER 2018-06-16 03:48 | Emergency (ER) | payer MEDICARE, MEDICAID, SELFPAY ==
--- NOTE | 2018-06-16 04:01 | ED.PSYCH ---
HPI - Psych General Chief Complaint: Psychiatric Symptoms Stated Complaint: [facility] to [facility] Time Seen by Provider: 06/16/18 03:49 Source: patient Mode of arrival: ambulatory Limitations: no limitations History of Present Illness HPI Narrative: 33-year-old male, daily smoker, drinker with diagnosis of bipolar disorder presents with severe depression requesting help. He he denies suicidal or homicidal ideations but states he has been off his medications for at least 1-2 weeks and has not slept in many days, is unsure when his last good night of sleep was. He is currently without a psychiatrist. He was most recently hospitalized for psychiatric reasons [place] in April. He admits to using methamphetamines about [address] Had been working in [place] but states the work dried, this is certainly contributing to his state MD complaint: feels depressed Onset (ago): day(s) Duration: constant History of same: Yes Relieving factors: none Exacerbating factors: alcohol, drug use and other Context: not taking psychiatric medications and significant life stressor Associated psychiatric symptoms: depression, racing thoughts, auditory hallucinations and visual hallucinations Treatments prior to arrival: none Related Data Home Medications Medication Instructions Recorded Confirmed quetiapine [Seroquel] 100 mg PO TID 05/10/18 05/10/18 Allergies Allergy/AdvReac Type Severity Reaction Status Date / Time Sulfa (Sulfonamide Allergy Verified 05/10/18 10:56 Antibiotics) Review of Systems Review of Systems All systems reviewed & are unremarkable except as noted in HPI and below Constitutional Denies chills, Denies fever(s), Denies lethargy and Denies weakness Eyes Denies change in vision, Denies eye discharge, Denies irritation and Denies loss of vision ENT Ears, Nose, Mouth, and Throat: Denies change in voice, Denies neck pain and Denies sore throat Cardiovascular Denies chest pain, Denies irregular heart rhythm, Denies lightheadedness, Denies palpitations, Denies dyspnea, Denies dyspnea on exertion and Denies orthopnea Respiratory Denies cough, Denies dyspnea, Denies dyspnea on exertion and Denies wheezing Gastrointestinal Gastrointestinal: Denies abdominal pain, Denies change in bowel habits, Denies diarrhea, Denies nausea and Denies vomiting Genitourinary Denies hematuria, Denies flank pain, Denies urinary incontinence and Denies urinary urgency Musculoskeletal Denies neck pain Integumentary/Breasts Denies pruritus, Denies erythema, Denies rash and Denies wounds Neurologic Reports behavioral changes, Denies confusion, Denies loss of vision, Reports memory loss and Denies weakness Psychiatric Denies anxiety, Reports behavioral changes, Reports change in appetite, Denies confusion, Reports depression, Reports difficulty concentrating, Reports anhedonia, Reports memory loss, Reports mood swings, Reports visual hallucinations, Reports hallucinations, Denies homicidal ideation and Denies suicidal ideation Endocrine Denies palpitations Hematologic/Lymphatic Denies easy bruising Allergic/Immunologic Denies wheezing [facility] Medical History Substance abuse (Acute) Social History Smoking Status: Current every day smoker substance use type: methamphetamine Exam Narrative Exam Narrative: GENERAL: 33-year-old male with flat affect, refusing to make eye contact. He is disheveled and unkempt HEAD: Atraumatic. Normocephalic. No temporal or scalp tenderness. EYES: Pupils equal round and reactive. Extraocular motions intact. No scleral icterus. No injection or drainage. ENT: Nose without bleeding, purulent drainage or septal hematoma. Throat without erythema, tonsillar hypertrophy or exudate. Uvula midline. Airway patent. NECK: Trachea midline. No JVD or lymphadenopathy. Supple, nontender, no meningeal signs. CARDIOVASCULAR: Regular rate and rhythm without murmurs, gallops, or rubs. RESPIRATORY: Clear to auscultation. Breath sounds equal bilaterally. No wheezes, rales, or rhonchi. GASTROINTESTINAL: Abdomen soft, non-tender, nondistended. No hepato-splenomegaly, or palpable masses. No guarding. EXTREMITIES: No clubbing, cyanosis, or edema. No joint tenderness, effusion, or edema noted. BACK: Nontender without deformity or crepitance. No flank tenderness. NEURO: AOx3. SKIN: No rash or erythema. Initial Vital Signs Initial Vital Signs: Vital Signs Temperature 98 F 06/16/18 04:05 Pulse Rate 95 H 06/16/18 04:05 Respiratory Rate 20 06/16/18 04:05 Blood Pressure 138/91 H 06/16/18 04:05 Pulse Oximetry 96 06/16/18 04:05 Course Orders Ordered: Discontinued Medications Olanzapine (Zyprexa Zydis) 10 mg PO NOW ONE Stop: 06/16/18 04:02 Last Admin: 06/16/18 04:09 Dose: 10 mg MDM - Psych Lab Data Result diagrams: 06/16/18 04:09 06/16/18 04:09 Lab Results 06/16/18 06/16/18 06/16/18 Range/Units 04:09 04:09 04:09 WBC 7.0 (4.5-11.0) X10^3/uL RBC 4.66 (4.5-5.9) X10^6/uL Hgb 14.6 (13.5-17.5) g/dL Hct 42.1 (41-53) % MCV 90.2 (80-100) fL MCH 31.3 (26-34) PG MCHC 34.6 (30-36) % RDW 13.6 (11.6-14.8) % Plt Count 102 L (150-400) X10^3/uL Neut % (Auto) 67.3 (50-75) % Lymph % (Auto) 24.4 L (25-40) % [place] % (Auto) 6.6 (3-14) % Eos % (Auto) 1.3 L (2-4) % Baso % (Auto) 0.4 (0-2) % Neut # (Auto) 4700 (1350-4992) /uL Sodium 143 (137-145) mmol/L Potassium 4.3 (3.4-5.1) mmol/L Chloride 108 H (98-107) mmol/L Carbon Dioxide 25 (22-32) mmol/L BUN 16 (9-20) mg/dL Creatinine 0.80 (0.66-1.25) mg/dL Estimated GFR > 60.0 (>60) mL/min BUN/Creatinine Ratio 20.0 (6-22) Glucose 82 (70-100) mg/dL Calcium 9.0 (8.4-10.2) mg/dL Total Bilirubin 0.5 (0.2-1.3) mg/dL AST 35 (17-59) IU/L ALT 40 (21-72) IU/L Alkaline Phosphatase 75 (38-126) U/L Total Protein 7.3 (6.3-8.2) g/dL Albumin 4.4 (3.5-5.0) g/dL Globulin 2.9 (1.7-4.1) g/dL Albumin/Globulin Ratio 1.5 (1.0-2.8) TSH 4.00 (0.47-4.68) uIU/mL Urine Opiates Screen (Negative) Ur Oxycodone Screen (Negative) Urine Methadone Screen (Negative) Ur Barbiturates Screen (Negative) U Tricyclic Antidepress (Negative) Ur Phencyclidine Scrn (Negative) Ur Amphetamines Screen (Negative) U Methamphetamines Scrn (Negative) Ur MDMA Scrn (Ecstasy) (Negative) U Benzodiazepines Scrn (Negative) Urine Cocaine Screen (Negative) U Marijuana (THC) Screen (Negative) Ethyl Alcohol < 10 mg/dL 06/16/18 Range/Units 04:14 WBC (4.5-11.0) X10^3/uL RBC (4.5-5.9) X10^6/uL Hgb (13.5-17.5) g/dL Hct (41-53) % MCV (80-100) fL MCH (26-34) PG MCHC (30-36) % RDW (11.6-14.8) % Plt Count (150-400) X10^3/uL Neut % (Auto) (50-75) % Lymph % (Auto) (25-40) % [place] % (Auto) (3-14) % Eos % (Auto) (2-4) % Baso % (Auto) (0-2) % Neut # (Auto) (5507-1282) /uL Sodium (137-145) mmol/L Potassium (3.4-5.1) mmol/L Chloride (98-107) mmol/L Carbon Dioxide (22-32) mmol/L BUN (9-20) mg/dL Creatinine (0.66-1.25) mg/dL Estimated GFR (>60) mL/min BUN/Creatinine Ratio (6-22) Glucose (70-100) mg/dL Calcium (8.4-10.2) mg/dL Total Bilirubin (0.2-1.3) mg/dL AST (17-59) IU/L ALT (21-72) IU/L Alkaline Phosphatase (38-126) U/L Total Protein (6.3-8.2) g/dL Albumin (3.5-5.0) g/dL Globulin (1.7-4.1) g/dL Albumin/Globulin Ratio (1.0-2.8) TSH (0.47-4.68) uIU/mL Urine Opiates Screen Negative (Negative) Ur Oxycodone Screen Negative (Negative) Urine Methadone Screen Negative (Negative) Ur Barbiturates Screen Negative (Negative) U Tricyclic Antidepress Positive H (Negative) Ur Phencyclidine Scrn Negative (Negative) Ur Amphetamines Screen Negative (Negative) U Methamphetamines Scrn Negative (Negative) Ur MDMA Scrn (Ecstasy) Negative (Negative) U Benzodiazepines Scrn Negative (Negative) Urine Cocaine Screen Negative (Negative) U Marijuana (THC) Screen Positive H (Negative) Ethyl Alcohol mg/dL Discharge Plan Departure Patient Disposition: Left Without Being Seen Clinical Impression: Homeless single person Discharge Date/Time: 06/16/18 07:36 Interventions: ED Discharge Assessment Last Done: 06/16/18 07:35
[2018-06-16 04:05] VITALS: BP 138/91; PULSE 95; RESP 20; TEMP 36.6; O2SAT 96; BMI 26.4
--- NOTE | 2018-06-16 04:05 | ED_ITS ---
HPI - Psych General Chief Complaint: Psychiatric Symptoms Stated Complaint: [facility] to [facility] Time Seen by Provider: 06/16/18 03:49 Source: patient Mode of arrival: ambulatory Limitations: no limitations History of Present Illness HPI Narrative: 33-year-old male, daily smoker, drinker with diagnosis of bipolar disorder presents with severe depression requesting help. He he denies suicidal or homicidal ideations but states he has been off his medications for at least 1-2 weeks and has not slept in many days, is unsure when his last good night of sleep was. He is currently without a psychiatrist. He was most recently hospitalized for psychiatric reasons [place] in April. He admits to using methamphetamines about [address] Had been working in [place] but states the work dried, this is certainly contributing to his state MD complaint: feels depressed Onset (ago): day(s) Duration: constant History of same: Yes Relieving factors: none Exacerbating factors: alcohol, drug use and other Context: not taking psychiatric medications and significant life stressor Associated psychiatric symptoms: depression, racing thoughts, auditory hallucinations and visual hallucinations Treatments prior to arrival: none Related Data Home Medications Medication Instructions Recorded Confirmed quetiapine [Seroquel] 100 mg PO TID 05/10/18 05/10/18 Allergies Allergy/AdvReac Type Severity Reaction Status Date / Time Sulfa (Sulfonamide Allergy Verified 05/10/18 10:56 Antibiotics) Review of Systems Review of Systems All systems reviewed & are unremarkable except as noted in HPI and below Constitutional Denies chills, Denies fever(s), Denies lethargy and Denies weakness Eyes Denies change in vision, Denies eye discharge, Denies irritation and Denies loss of vision ENT Ears, Nose, Mouth, and Throat: Denies change in voice, Denies neck pain and Denies sore throat Cardiovascular Denies chest pain, Denies irregular heart rhythm, Denies lightheadedness, Denies palpitations, Denies dyspnea, Denies dyspnea on exertion and Denies orthopnea Respiratory Denies cough, Denies dyspnea, Denies dyspnea on exertion and Denies wheezing Gastrointestinal Gastrointestinal: Denies abdominal pain, Denies change in bowel habits, Denies diarrhea, Denies nausea and Denies vomiting Genitourinary Denies hematuria, Denies flank pain, Denies urinary incontinence and Denies urinary urgency Musculoskeletal Denies neck pain Integumentary/Breasts Denies pruritus, Denies erythema, Denies rash and Denies wounds Neurologic Reports behavioral changes, Denies confusion, Denies loss of vision, Reports memory loss and Denies weakness Psychiatric Denies anxiety, Reports behavioral changes, Reports change in appetite, Denies confusion, Reports depression, Reports difficulty concentrating, Reports anhedonia, Reports memory loss, Reports mood swings, Reports visual hallucinations, Reports hallucinations, Denies homicidal ideation and Denies suicidal ideation Endocrine Denies palpitations Hematologic/Lymphatic Denies easy bruising Allergic/Immunologic Denies wheezing [facility] Medical History Substance abuse (Acute) Social History Smoking Status: Current every day smoker substance use type: methamphetamine Exam Narrative Exam Narrative: GENERAL: 33-year-old male with flat affect, refusing to make eye contact. He is disheveled and unkempt HEAD: Atraumatic. Normocephalic. No temporal or scalp tenderness. EYES: Pupils equal round and reactive. Extraocular motions intact. No scleral icterus. No injection or drainage. ENT: Nose without bleeding, purulent drainage or septal hematoma. Throat without erythema, tonsillar hypertrophy or exudate. Uvula midline. Airway patent. NECK: Trachea midline. No JVD or lymphadenopathy. Supple, nontender, no meningeal signs. CARDIOVASCULAR: Regular rate and rhythm without murmurs, gallops, or rubs. RESPIRATORY: Clear to auscultation. Breath sounds equal bilaterally. No wheezes , rales, or rhonchi. GASTROINTESTINAL: Abdomen soft, non-tender, nondistended. No hepato-splenomegaly , or palpable masses. No guarding. EXTREMITIES: No clubbing, cyanosis, or edema. No joint tenderness, effusion, or edema noted. BACK: Nontender without deformity or crepitance. No flank tenderness. NEURO: AOx3. SKIN: No rash or erythema. Initial Vital Signs Initial Vital Signs: Vital Signs Temperature 98 F 06/16/18 04:05 Pulse Rate 95 H 06/16/18 04:05 Respiratory Rate 20 06/16/18 04:05 Blood Pressure 138/91 H 06/16/18 04:05 Pulse Oximetry 96 06/16/18 04:05 Course Orders Ordered: Discontinued Medications Olanzapine (Zyprexa Zydis) 10 mg PO NOW ONE Stop: 06/16/18 04:02 Last Admin: 06/16/18 04:09 Dose: 10 mg MDM - Psych Lab Data Result diagrams: 06/16/18 04:09 06/16/18 04:09 Lab Results 06/16/18 06/16/18 06/16/18 Range/Units 04:09 04:09 04:09 WBC 7.0 (4.5-11.0) X10^3/uL RBC 4.66 (4.5-5.9) X10^6/uL Hgb 14.6 (13.5-17.5) g/dL Hct 42.1 (41-53) % MCV 90.2 (80-100) fL MCH 31.3 (26-34) PG MCHC 34.6 (30-36) % RDW 13.6 (11.6-14.8) % Plt Count 102 L (150-400) X10^3/uL Neut % (Auto) 67.3 (50-75) % Lymph % (Auto) 24.4 L (25-40) % [place] % (Auto) 6.6 (3-14) % Eos % (Auto) 1.3 L (2-4) % Baso % (Auto) 0.4 (0-2) % Neut # (Auto) 4700 (1535-0670) /uL Sodium 143 (137-145) mmol/L Potassium 4.3 (3.4-5.1) mmol/L Chloride 108 H (98-107) mmol/L Carbon Dioxide 25 (22-32) mmol/L BUN 16 (9-20) mg/dL Creatinine 0.80 (0.66-1.25) mg/dL Estimated GFR > 60.0 (>60) mL/min BUN/Creatinine Ratio 20.0 (6-22) Glucose 82 (70-100) mg/dL Calcium 9.0 (8.4-10.2) mg/dL Total Bilirubin 0.5 (0.2-1.3) mg/dL AST 35 (17-59) IU/L ALT 40 (21-72) IU/L Alkaline Phosphatase 75 (38-126) U/L Total Protein 7.3 (6.3-8.2) g/dL Albumin 4.4 (3.5-5.0) g/dL Globulin 2.9 (1.7-4.1) g/dL Albumin/Globulin Ratio 1.5 (1.0-2.8) TSH 4.00 (0.47-4.68) uIU/mL Urine Opiates Screen (Negative) Ur Oxycodone Screen (Negative) Urine Methadone Screen (Negative) Ur Barbiturates Screen (Negative) U Tricyclic Antidepress (Negative) Ur Phencyclidine Scrn (Negative) Ur Amphetamines Screen (Negative) U Methamphetamines Scrn (Negative) Ur MDMA Scrn (Ecstasy) (Negative) U Benzodiazepines Scrn (Negative) Urine Cocaine Screen (Negative) U Marijuana (THC) Screen (Negative) Ethyl Alcohol < 10 mg/dL 06/16/18 Range/Units 04:14 WBC (4.5-11.0) X10^3/uL RBC (4.5-5.9) X10^6/uL Hgb (13.5-17.5) g/dL Hct (41-53) % MCV (80-100) fL MCH (26-34) PG MCHC (30-36) % RDW (11.6-14.8) % Plt Count (150-400) X10^3/uL Neut % (Auto) (50-75) % Lymph % (Auto) (25-40) % [place] % (Auto) (3-14) % Eos % (Auto) (2-4) % Baso % (Auto) (0-2) % Neut # (Auto) (1805-6878) /uL Sodium (137-145) mmol/L Potassium (3.4-5.1) mmol/L Chloride (98-107) mmol/L Carbon Dioxide (22-32) mmol/L BUN (9-20) mg/dL Creatinine (0.66-1.25) mg/dL Estimated GFR (>60) mL/min BUN/Creatinine Ratio (6-22) Glucose (70-100) mg/dL Calcium (8.4-10.2) mg/dL Total Bilirubin (0.2-1.3) mg/dL AST (17-59) IU/L ALT (21-72) IU/L Alkaline Phosphatase (38-126) U/L Total Protein (6.3-8.2) g/dL Albumin (3.5-5.0) g/dL Globulin (1.7-4.1) g/dL Albumin/Globulin Ratio (1.0-2.8) TSH (0.47-4.68) uIU/mL Urine Opiates Screen Negative (Negative) Ur Oxycodone Screen Negative (Negative) Urine Methadone Screen Negative (Negative) Ur Barbiturates Screen Negative (Negative) U Tricyclic Antidepress Positive H (Negative) Ur Phencyclidine Scrn Negative (Negative) Ur Amphetamines Screen Negative (Negative) U Methamphetamines Scrn Negative (Negative) Ur MDMA Scrn (Ecstasy) Negative (Negative) U Benzodiazepines Scrn Negative (Negative) Urine Cocaine Screen Negative (Negative) U Marijuana (THC) Screen Positive H (Negative) Ethyl Alcohol mg/dL Discharge Plan Departure Patient Disposition: Left Without Being Seen Clinical Impression: Homeless single person Discharge Date/Time: 06/16/18 07:36 Interventions: ED Discharge Assessment Last Done: 06/16/18 07:35
[2018-06-16] MEDS: OLANZapine ODT 10 MG TAB PO (04:09)
[2018-06-16 04:20] LABS: Add Manual Diff / Slide Review NO; Basophils Percent Auto 0.4 % (0-2); Eosinophils Percent Auto 1.3 % (2-4); Hematocrit 42.1 % (41-53); Hemoglobin 14.6 g/dL (13.5-17.5); Lymphocytes Percent Auto 24.4 % (25-40); Mean Corpuscular HGB Conc 34.6 % (30-36); Mean Corpuscular Hemoglobin 31.3 PG (26-34); Mean Corpuscular Volume 90.2 fL (80-100); Monocytes Percent Auto 6.6 % (3-14); Neutrophils Absolute Auto 4700 /uL (1500-7000); Neutrophils Percent Auto 67.3 % (50-75); Platelet Count 102 X10^3/uL (150-400); Red Blood Cell Count 4.66 X10^6/uL (4.5-5.9); Red Cell Distribution Width 13.6 % (11.6-14.8)
[2018-06-16 04:24] LABS: Urine Amphetamines Negative (Negative); Urine Barbiturates Negative (Negative); Urine Benzodiazepines Negative (Negative); Urine Cocaine Negative (Negative); Urine MDMA Negative (Negative); Urine Methadone Negative (Negative); Urine Methamphetamines Negative (Negative); Urine Morphine/Opi cutoff 2000 Negative (Negative); Urine Oxycodone Negative (Negative); Urine Phencyclidine Negative (Negative); Urine Tetrahydrocannabinol Positive (Negative)
[2018-06-16 04:25] LABS: Urine Tricyclic Antidepressant Positive (Negative)
[2018-06-16 04:29] LABS: Alanine Aminotransferase 40 IU/L (21-72); Albumin 4.4 g/dL (3.5-5.0); Albumin Globulin Ratio 1.5 (1.0-2.8); Alkaline Phosphatase 75 U/L (38-126); Aspartate Aminotransferase 35 IU/L (17-59); Bilirubin Total 0.5 mg/dL (0.2-1.3); Blood Urea Nitrogen 16 mg/dL (9-20); Carbon Dioxide 25 mmol/L (22-32); Chloride 108 mmol/L (98-107); Estimated Glomerular Filt Rate > 60.0 mL/min (>60); Globulin 2.9 g/dL (1.7-4.1); Glucose 82 mg/dL (70-100); HEMOLYSIS < 15 (0-50); Potassium 4.3 mmol/L (3.4-5.1); Sodium 143 mmol/L (137-145); Total Protein 7.3 g/dL (6.3-8.2)
[2018-06-16 04:58] LABS: Ethanol (ETOH) < 10 mg/dL
--- NOTE | 2018-06-16 05:27 | PC.NURSE ---
Due to his c/o insomnia he will be allowed to sleep and not be awakened unless absolutely necessary.DR. Gar is aware of this.Breakfast is ordered for him along with social service consult.
--- NOTE | 2018-06-16 05:56 | PC.NURSE ---
I contacted the crisis center concerning evaluation for MR. Shultz.Jonel answered my call and stated that the hospital is responsible for a patient if they are here voluntarily.
--- NOTE | 2018-06-16 07:34 | PC.NURSE ---
pt. woke up said he was feeling better after sleeping and was going to leave. We offered him breakfast to stay but he refused and said he was good to go.
== END 2018-06-16 07:36 | disposition left against medical advice (07) ==
PROVIDERS: Emergency Provider Emergency Medicine
DX: F32.9 Major depressive disorder, single episode, unspecified (principal); Z59.0 Homelessness
CPT/HCPCS: 36415; 80053; 80305; 80320; 84443; 85025; 99283

== ENCOUNTER 2018-06-21 21:50 | Emergency (ER) | payer MEDICARE, MEDICAID, SELFPAY ==
[2018-06-21 21:56] VITALS: BP 132/95; PULSE 113; RESP 20; TEMP 35.6; O2SAT 99; BMI 25.1
[2018-06-21 22:33] LABS: Urine Amphetamines Positive (Negative); Urine Barbiturates Negative (Negative); Urine Benzodiazepines Positive (Negative); Urine Cocaine Positive (Negative); Urine MDMA Negative (Negative); Urine Methadone Negative (Negative); Urine Methamphetamines Positive (Negative); Urine Morphine/Opi cutoff 2000 Negative (Negative); Urine Oxycodone Negative (Negative); Urine Phencyclidine Negative (Negative); Urine Tetrahydrocannabinol Positive (Negative); Urine Tricyclic Antidepressant Negative (Negative)
[2018-06-21] MEDS: OLANZapine ODT 10 MG TAB PO (23:00)
[2018-06-21 23:42] VITALS: BP 136/88; PULSE 98; RESP 21; TEMP 36.4; O2SAT 98
--- NOTE | 2018-06-21 23:43 | PC.NURSE ---
His clothes were dried in the dryer,his was given a snack.he is much less restless now.alert,gait steady.
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
== END 2018-06-21 23:44 | disposition home or self-care (01) ==
PROVIDERS: Emergency Provider Emergency Medicine
DX: F19.10 Other psychoactive substance abuse, uncomplicated (principal); Z59.0 Homelessness
CPT/HCPCS: 80305; 99282; 99283

== ENCOUNTER 2021-04-27 11:21 | Emergency (ER) | payer OTHER, MEDICAID, SELFPAY ==
[2021-04-27 12:07] VITALS: BP 157/92; PULSE 110; TEMP 36.9; O2SAT 98
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
[2021-04-27 13:07] LABS: Add Manual Diff / Slide Review NO; Basophils Absolute Auto 100 /uL (0-100); Basophils Percent Auto 0.5 % (0-2); Eosinophils Absolute Auto 0 /uL (0-450); Eosinophils Percent Auto 0.3 % (2-4); Hematocrit 41.7 % (41-53); Hemoglobin 14.3 g/dL (13.5-17.5); Lymphocytes Absolute Auto 1600 /uL (1100-4500); Mean Corpuscular HGB Conc 34.4 % (30-36); Mean Corpuscular Hemoglobin 28.8 PG (26-34); Mean Corpuscular Volume 83.7 fL (80-100); Monocytes Absolute Auto 600 /uL (0-900); Monocytes Percent Auto 5.1 % (3-14); Neutrophils Absolute Auto 8900 /uL (1500-7000); Neutrophils Percent Auto 80.1 % (50-75); Platelet Count 167 X10^3/uL (150-400); Red Blood Cell Count 4.98 X10^6/uL (4.5-5.9); Red Cell Distribution Width 16.1 % (11.6-14.8); White Blood Cell Count 11.1 X10^3/uL (4.5-11.0)
[2021-04-27] MEDS: LORazepam 2 MG/ML INJ 1 MG IM (13:14)
[2021-04-27 13:17] LABS: Ur Creatinine Normal (Normal); Ur Specific Gravity Normal (Normal); Urine pH Normal (Normal)
[2021-04-27 13:18] LABS: UR Morphine/Opiate cutoff 300 Negative (Negative); Urine Amphetamines Positive (Negative); Urine Barbiturates Negative (Negative); Urine Benzodiazepines Negative (Negative); Urine Cocaine Negative (Negative); Urine MDMA Negative (Negative); Urine Methadone Negative (Negative); Urine Methamphetamines Positive (Negative); Urine Oxycodone Negative (Negative); Urine Phencyclidine Negative (Negative); Urine Tetrahydrocannabinol Positive (Negative); Urine Tricyclic Antidepressant Negative (Negative)
[2021-04-27 13:21] LABS: Bacteria Urine None Seen; Culture Indicated Urine Cult Not Indicated; RBC Urine None Seen (0-5/HPF); Urine Comments Microscopic Normal; WBC Urine None Seen (0-5/HPF)
[2021-04-27 13:22] LABS: Acetaminophen < 10 ug/mL (10-30); Alanine Aminotransferase 34 IU/L (<50); Albumin 4.6 g/dL (3.5-5.0); Albumin Globulin Ratio 1.5 (1.0-2.8); Alkaline Phosphatase 135 U/L (38-126); Aspartate Aminotransferase 29 IU/L (17-59); BUN Creatinine Ratio 12.1 (6-22); Bilirubin Total 1.1 mg/dL (0.2-1.3); Blood Urea Nitrogen 11 mg/dL (9-20); Calcium 9.2 mg/dL (8.4-10.2); Carbon Dioxide 20 mmol/L (22-32); Chloride 105 mmol/L (98-107); Estimated Glomerular Filt Rate > 60.0 mL/min (>60); Ethanol (ETOH) < 10 mg/dL; Glucose 101 mg/dL (70-100); HEMOLYSIS < 15 (0-50); Potassium 3.7 mmol/L (3.4-5.1); Salicylate < 1.0 mg/dL (<20); Sodium 137 mmol/L (137-145); Total Protein 7.6 g/dL (6.3-8.2)
--- NOTE | 2021-04-27 13:28 | ED_ITS ---
HPI - Psych <Trever Lane PA-C - Last Filed: 04/27/21 19:29> General Chief Complaint: Psychiatric Symptoms Stated Complaint: needs to sleep Time Seen by Provider: 04/27/21 12:17 Source: patient Mode of arrival: Ambulatory History of Present Illness HPI Narrative: 35-year-old male with no reported past medical history presents to the ED with insomnia. Patient states that he used crystal meth amphetamine, which caused him mental problems and insomnia. Patient appears agitated, incoherent, unable to give a coherent history or sequence of events. Patient states repeatedly that he needs to sleep, and that he needs mental health help. Patient wishes voluntary admission to inpatient psych services. Patient is unable to state how long he has been using crystal meth. Patient denies using any other substances. Patient denies any other symptoms including fever, chills, chest pain, shortness of breath, cough, nausea, vomiting, abdominal pain, diarrhea, constipation, dysuria. Patient states he has not been very hungry and has not been eating very well. Patient denies hearing voices or seeing things that other people do not see. Patient denies any intent or thoughts of self-harm or harm to others. Related Data Home Medications Medication Instructions Recorded Confirmed quetiapine 400 mg tablet 400 mg PO DAILY 04/27/21 04/27/21 Allergies Allergy/AdvReac Type Severity Reaction Status Date / Time Sulfa (Sulfonamide Allergy Verified 04/27/21 12:22 Antibiotics) Review of Systems <Trever Lane PA-C - Last Filed: 04/27/21 19:29> Constitutional Constitutional: Denies chills, Denies fatigue, Denies fever(s), Denies frequent falls, Denies lethargy, Reports poor appetite and Denies weakness Comments: Insomnia Eyes Eyes: Denies change in vision, Denies eye discharge, Denies irritation and Denies loss of vision ENT Ears, Nose, Mouth, and Throat: Denies change in voice, Denies dizziness, Denies neck pain, Denies sore throat and Denies throat swelling Cardiovascular Cardiovascular: Denies chest pain, Denies irregular heart rhythm, Denies lightheadedness, Denies palpitations, Denies dyspnea, Denies dyspnea on exertion and Denies orthopnea Respiratory Respiratory: Denies cough, Denies dyspnea, Denies dyspnea on exertion and Denies wheezing Gastrointestinal Gastrointestinal: Denies abdominal pain, Denies change in bowel habits, Denies diarrhea, Denies nausea and Denies vomiting Musculoskeletal Musculoskeletal: Denies neck pain and Denies numbness Integumentary/Breasts Skin/Breast: Denies pruritus, Denies erythema, Denies rash and Denies wounds Neurologic Neurologic: Reports behavioral changes, Denies confusion, Denies dizziness, Jose es frequent falls, Denies loss of vision, Denies numbness and Denies weakness Psychiatric Psychiatric: Reports anxiety, Reports behavioral changes, Reports change in appetite, Denies confusion, Denies depression, Denies visual hallucinations, Denies tactile hallucinations, Denies homicidal ideation and Denies suicidal ideation Comments: Insomnia, agitation Endocrine Endocrine: Denies fatigue, Denies flushing and Denies palpitations Hematologic/Lymphatic Hematologic/Lymphatic: Denies easy bruising Allergic/Immunologic Allergic/Immunologic: Denies urticaria, Denies throat swelling and Denies wheezing Patient History <Trever Lane PA-C - Last Filed: 04/27/21 19:29> Medical History Homeless single person Polysubstance abuse Substance abuse Social History Smoking Status: Current every day smoker substance use type: methamphetamine Smoking Status: Current every day smoker alcohol intake frequency: 0-2 drinks per day Substance Use Type: heroin and amphetamines Exam <Trever Lane PA-C - Last Filed: 04/27/21 19:29> Narrative Exam Narrative: Patient appears agitated in the ED, stating he needs some medicine to sleep. Patient is a poor historian, unable to coherently state his symptoms or sequence of events. Patient is seen talking to himself. Patient denies hearing voices, seeing things other people do not see. Patient is disorganized in his thought process. Initial Vital Signs Initial Vital Signs: Vital Signs Temperature 98.4 F 04/27/21 12:07 Pulse Rate 110 H 04/27/21 12:07 Blood Pressure 157/92 H 04/27/21 12:07 Pulse Oximetry 98 04/27/21 12:07 Const General: cooperative and anxious HENMT Head: normocephalic and atraumatic Ears: external ears normal and TM's normal bilaterally Nose: external nose normal and No nasal discharge Face and sinus: sinuses nontender, face symmetric, no sinus tenderness and No dry mucous membranes Mouth: oral mucosae normal and moist mucous membranes Teeth and gingiva: dentition normal Throat: tonsils normal and uvula midline Eyes General: appearance normal, both eyes and all related structures Eyelids: eyelids normal Conjunctivae: conjunctivae normal Sclera: sclerae normal Pupils: PERRL EOM: EOM intact bilaterally Neck Neck: normal visual inspection, trachea midline, No lymphadenopathy, No midline deformity and No JVD Lymphatic: No lymphedema Chest Chest: normal inspection of the chest Resp Effort & Inspection: normal respiratory effort, able to speak in complete sentences, no respiratory distress and no use of accessory muscles Auscultation: clear to auscultation bilaterally, no rales, no rhonchi and no wheezes Cardio Rate: regular rate Rhythm: regular rhythm Heart Sounds: no click, no gallops, no murmurs and no rubs Pulses: normal peripheral pulses GI Inspection: non-distended Palpation: soft, no hepatosplenomegaly, No guarding, No pulsatile mass and No tender Auscultation: normal bowel sounds Back/Spine/Pelvis Back: No CVA tenderness Cervical Spine: cervical ROM normal and No pain with cervical ROM Thoracic/Lumbar Spine: thoracic and lumbar spine normal to inspection Skin General: no rashes or lesions noted, No jaundice and No petechiae Neuro General: patient alert, patient oriented x3, gait normal and no focal motor deficits Speech: speech normal Extrem General: full ROM, no clubbing, cyanosis or edema, no pedal edema and no calf tenderness Psych Appearance: well kempt Mental Status: mental status grossly normal Attitude: cooperative Thought Content: normal and suicidality Judgment: judgment good <Andrew Shell DO - Last Filed: 04/28/21 07:22> Initial Vital Signs Initial Vital Signs: Vital Signs Temperature 98.4 F 04/27/21 12:07 Pulse Rate 110 H 04/27/21 12:07 Blood Pressure 157/92 H 04/27/21 12:07 Pulse Oximetry 98 04/27/21 12:07 Course <Trever Lane PA-C - Last Filed: 04/27/21 19:29> Course Course Narrative: Patient's agitation controlled with Ativan. Tox positive for methamphetamines, marijuana. Labs otherwise within normal limits. Patient is medically cleared for inpatient psych admission. Patient has been accepted by [facility] in [place]. Orders Ordered: Discontinued Medications Lorazepam (Lorazepam 2 Mg/Ml Inj) 1 mg IV NOW ONE Stop: 04/27/21 12:47 Last Admin: 04/27/21 14:15 Dose: Not Given Documented by: LINNEA Lorazepam (Lorazepam 2 Mg/Ml Inj) 1 mg IM NOW ONE Stop: 04/27/21 13:06 Last Admin: 04/27/21 13:14 Dose: 1 mg Documented by: LINNEA Quetiapine Fumarate (Quetiapine 100 Mg Tablet) 400 mg PO NOW ONE Stop: 04/27/21 14:22 Last Admin: 04/27/21 14:29 Dose: 400 mg Documented by: LINNEA Vital Signs Vital signs: Vital Signs - 8 hr 04/27/21 12:07 04/27/21 16:08 Temperature 98.4 F 98.3 F Pulse Rate 110 H 112 H Blood Pressure 157/92 H 135/70 Pulse Oximetry 98 99 <Andrew Shell DO - Last Filed: 04/28/21 07:22> Orders Ordered: Discontinued Medications Lorazepam (Lorazepam 2 Mg/Ml Inj) 1 mg IV NOW ONE Stop: 04/27/21 12:47 Last Admin: 04/27/21 14:15 Dose: Not Given Documented by: LINNEA Lorazepam (Lorazepam 2 Mg/Ml Inj) 1 mg IM NOW ONE Stop: 04/27/21 13:06 Last Admin: 04/27/21 13:14 Dose: 1 mg Documented by: LINNEA Quetiapine Fumarate (Quetiapine 100 Mg Tablet) 400 mg PO NOW ONE Stop: 04/27/21 14:22 Last Admin: 04/27/21 14:29 Dose: 400 mg Documented by: LINNEA Vital Signs Vital signs: Vital Signs - 8 hr 04/27/21 12:07 04/27/21 16:08 Temperature 98.4 F 98.3 F Pulse Rate 110 H 112 H Blood Pressure 157/92 H 135/70 Pulse Oximetry 98 99 MDM - Psych <Trever Lane PA-C - Last Filed: 04/27/21 19:29> Lab Data Lab results narrative: Labs within normal limits. Tox positive for methamphetamines, marijuana Result diagrams: 04/27/21 12:55 04/27/21 12:55 Labs: Lab Results 04/27/21 04/27/21 04/27/21 Range/Units 12:55 12:55 12:55 WBC 11.1 H (4.5-11.0) X10^3/uL RBC 4.98 (4.5-5.9) X10^6/uL Hgb 14.3 (13.5-17.5) g/dL Hct 41.7 (41-53) % MCV 83.7 (80-100) fL MCH 28.8 (26-34) PG MCHC 34.4 (30-36) % RDW 16.1 H (11.6-14.8) % Plt Count 167 (150-400) X10^3/uL Neut % (Auto) 80.1 H (50-75) % Lymph % (Auto) 14.0 L (25-40) % [place] % (Auto) 5.1 (3-14) % Eos % (Auto) 0.3 L (2-4) % Baso % (Auto) 0.5 (0-2) % Neut # (Auto) 8900 H (9315-4913) /uL Lymph # (Auto) 1600 (9234-1659) /uL [place] # (Auto) 600 (0-900) /uL Eos # (Auto) 0 (0-450) /uL Baso # (Auto) 100 (0-100) /uL Sodium (137-145) mmol/L Potassium (3.4-5.1) mmol/L Chloride (98-107) mmol/L Carbon Dioxide (22-32) mmol/L BUN (9-20) mg/dL Creatinine (0.66-1.25) mg/dL Estimated GFR (>60) mL/min BUN/Creatinine Ratio (6-22) Glucose (70-100) mg/dL Calcium (8.4-10.2) mg/dL Total Bilirubin (0.2-1.3) mg/dL AST (17-59) IU/L ALT (<50) IU/L Alkaline Phosphatase (38-126) U/L Total Protein (6.3-8.2) g/dL Albumin (3.5-5.0) g/dL Globulin (1.7-4.1) g/dL Albumin/Globulin Ratio (1.0-2.8) TSH (0.47-4.68) uIU/mL Free T4 (0.78-2.19) ng/dL Urine RBC None seen (0-5/HPF) Urine WBC None seen (0-5/HPF) Urine Bacteria None seen (None) Ur Culture Indicated? Cult not indicated Micro UA Comment Microscopic normal Salicylates (<20) mg/dL U Opiates 300ng/mL cut Negative (Negative) Ur Oxycodone Screen Negative (Negative) Urine Methadone Screen Negative (Negative) Acetaminophen (10-30) ug/mL Ur Barbiturates Screen Negative (Negative) U Tricyclic Antidepress Negative (Negative) Ur Phencyclidine Scrn Negative (Negative) Ur Amphetamines Screen Positive H (Negative) U Methamphetamines Scrn Positive H (Negative) Ur MDMA Scrn (Ecstasy) Negative (Negative) U Benzodiazepines Scrn Negative (Negative) Urine Cocaine Screen Negative (Negative) U Marijuana (THC) Screen Positive H (Negative) Ethyl Alcohol ( - 10) mg/dL SARS-CoV-2 (PCR) (Negative) 04/27/21 04/27/21 04/27/21 Range/Units 12:55 12:55 12:55 WBC (4.5-11.0) X10^3/uL RBC (4.5-5.9) X10^6/uL Hgb (13.5-17.5) g/dL Hct (41-53) % MCV (80-100) fL MCH (26-34) PG MCHC (30-36) % RDW (11.6-14.8) % Plt Count (150-400) X10^3/uL Neut % (Auto) (50-75) % Lymph % (Auto) (25-40) % [place] % (Auto) (3-14) % Eos % (Auto) (2-4) % Baso % (Auto) (0-2) % Neut # (Auto) (5810-6407) /uL Lymph # (Auto) (0684-6181) /uL [place] # (Auto) (0-900) /uL Eos # (Auto) (0-450) /uL Baso # (Auto) (0-100) /uL Sodium 137 (137-145) mmol/L Potassium 3.7 (3.4-5.1) mmol/L Chloride 105 (98-107) mmol/L Carbon Dioxide 20 L (22-32) mmol/L BUN 11 (9-20) mg/dL Creatinine 0.91 (0.66-1.25) mg/dL Estimated GFR > 60.0 (>60) mL/min BUN/Creatinine Ratio 12.1 (6-22) Glucose 101 H (70-100) mg/dL Calcium 9.2 (8.4-10.2) mg/dL Total Bilirubin 1.1 (0.2-1.3) mg/dL AST 29 (17-59) IU/L ALT 34 (<50) IU/L Alkaline Phosphatase 135 H (38-126) U/L Total Protein 7.6 (6.3-8.2) g/dL Albumin 4.6 (3.5-5.0) g/dL Globulin 3.0 (1.7-4.1) g/dL Albumin/Globulin Ratio 1.5 (1.0-2.8) TSH 1.24 (0.47-4.68) uIU/mL Free T4 1.37 (0.78-2.19) ng/dL Urine RBC (0-5/HPF) Urine WBC (0-5/HPF) Urine Bacteria (None) Ur Culture Indicated? Micro UA Comment Salicylates < 1.0 (<20) mg/dL U Opiates 300ng/mL cut (Negative) Ur Oxycodone Screen (Negative) Urine Methadone Screen (Negative) Acetaminophen < 10 L (10-30) ug/mL Ur Barbiturates Screen (Negative) U Tricyclic Antidepress (Negative) Ur Phencyclidine Scrn (Negative) Ur Amphetamines Screen (Negative) U Methamphetamines Scrn (Negative) Ur MDMA Scrn (Ecstasy) (Negative) U Benzodiazepines Scrn (Negative) Urine Cocaine Screen (Negative) U Marijuana (THC) Screen (Negative) Ethyl Alcohol < 10 ( - 10) mg/dL SARS-CoV-2 (PCR) Negative (Negative) Urine Dip Bedside Urine Glucose Negative Bedside Urine Bilirubin - Negative Bedside Urine Ketone - Negative Urine Specific [place] 1.020 Bedside Urine Occult Blood - Negative Bedside Urine pH 6.0 Bedside Urine Protein +/- 15 Bedside Urine Urobilinogen - Negative Bedside Urine Nitrite - Negative Bedside Urine Leukocytes - Negative Esterase MDM Narrative Medical decision making narrative: 35-year-old male with no reported past medical history presents to the ED with insomnia. Concern for acute mental health issues that are disabling, warranting inpatient psychiatric admission. Will order labs, UA, TSH, drug screens, tox to rule out organic etiology. Social work is consulted. Likely admit to inpatient psych. <Andrew ShellDO - Last Filed: 04/28/21 07:22> Lab Data Labs: Lab Results 04/27/21 04/27/21 04/27/21 Range/Units 12:55 12:55 12:55 WBC 11.1 H (4.5-11.0) X10^3/uL RBC 4.98 (4.5-5.9) X10^6/uL Hgb 14.3 (13.5-17.5) g/dL Hct 41.7 (41-53) % MCV 83.7 (80-100) fL MCH 28.8 (26-34) PG MCHC 34.4 (30-36) % RDW 16.1 H (11.6-14.8) % Plt Count 167 (150-400) X10^3/uL Neut % (Auto) 80.1 H (50-75) % Lymph % (Auto) 14.0 L (25-40) % [place] % (Auto) 5.1 (3-14) % Eos % (Auto) 0.3 L (2-4) % Baso % (Auto) 0.5 (0-2) % Neut # (Auto) 8900 H (4461-0802) /uL Lymph # (Auto) 1600 (6810-5381) /uL [place] # (Auto) 600 (0-900) /uL Eos # (Auto) 0 (0-450) /uL Baso # (Auto) 100 (0-100) /uL Sodium (137-145) mmol/L Potassium (3.4-5.1) mmol/L Chloride (98-107) mmol/L Carbon Dioxide (22-32) mmol/L BUN (9-20) mg/dL Creatinine (0.66-1.25) mg/dL Estimated GFR (>60) mL/min BUN/Creatinine Ratio (6-22) Glucose (70-100) mg/dL Calcium (8.4-10.2) mg/dL Total Bilirubin (0.2-1.3) mg/dL AST (17-59) IU/L ALT (<50) IU/L Alkaline Phosphatase (38-126) U/L Total Protein (6.3-8.2) g/dL Albumin (3.5-5.0) g/dL Globulin (1.7-4.1) g/dL Albumin/Globulin Ratio (1.0-2.8) TSH (0.47-4.68) uIU/mL Free T4 (0.78-2.19) ng/dL Urine RBC None seen (0-5/HPF) Urine WBC None seen (0-5/HPF) Urine Bacteria None seen (None) Ur Culture Indicated? Cult not indicated Micro UA Comment Microscopic normal Salicylates (<20) mg/dL U Opiates 300ng/mL cut Negative (Negative) Ur Oxycodone Screen Negative (Negative) Urine Methadone Screen Negative (Negative) Acetaminophen (10-30) ug/mL Ur Barbiturates Screen Negative (Negative) U Tricyclic Antidepress Negative (Negative) Ur Phencyclidine Scrn Negative (Negative) Ur Amphetamines Screen Positive H (Negative) U Methamphetamines Scrn Positive H (Negative) Ur MDMA Scrn (Ecstasy) Negative (Negative) U Benzodiazepines Scrn Negative (Negative) Urine Cocaine Screen Negative (Negative) U Marijuana (THC) Screen Positive H (Negative) Ethyl Alcohol ( - 10) mg/dL SARS-CoV-2 (PCR) (Negative) 04/27/21 04/27/21 04/27/21 Range/Units 12:55 12:55 12:55 WBC (4.5-11.0) X10^3/uL RBC (4.5-5.9) X10^6/uL Hgb (13.5-17.5) g/dL Hct (41-53) % MCV (80-100) fL MCH (26-34) PG MCHC (30-36) % RDW (11.6-14.8) % Plt Count (150-400) X10^3/uL Neut % (Auto) (50-75) % Lymph % (Auto) (25-40) % [place] % (Auto) (3-14) % Eos % (Auto) (2-4) % Baso % (Auto) (0-2) % Neut # (Auto) (1464-1404) /uL Lymph # (Auto) (2269-1822) /uL [place] # (Auto) (0-900) /uL Eos # (Auto) (0-450) /uL Baso # (Auto) (0-100) /uL Sodium 137 (137-145) mmol/L Potassium 3.7 (3.4-5.1) mmol/L Chloride 105 (98-107) mmol/L Carbon Dioxide 20 L (22-32) mmol/L BUN 11 (9-20) mg/dL Creatinine 0.91 (0.66-1.25) mg/dL Estimated GFR > 60.0 (>60) mL/min BUN/Creatinine Ratio 12.1 (6-22) Glucose 101 H (70-100) mg/dL Calcium 9.2 (8.4-10.2) mg/dL Total Bilirubin 1.1 (0.2-1.3) mg/dL AST 29 (17-59) IU/L ALT 34 (<50) IU/L Alkaline Phosphatase 135 H (38-126) U/L Total Protein 7.6 (6.3-8.2) g/dL Albumin 4.6 (3.5-5.0) g/dL Globulin 3.0 (1.7-4.1) g/dL Albumin/Globulin Ratio 1.5 (1.0-2.8) TSH 1.24 (0.47-4.68) uIU/mL Free T4 1.37 (0.78-2.19) ng/dL Urine RBC (0-5/HPF) Urine WBC (0-5/HPF) Urine Bacteria (None) Ur Culture Indicated? Micro UA Comment Salicylates < 1.0 (<20) mg/dL U Opiates 300ng/mL cut (Negative) Ur Oxycodone Screen (Negative) Urine Methadone Screen (Negative) Acetaminophen < 10 L (10-30) ug/mL Ur Barbiturates Screen (Negative) U Tricyclic Antidepress (Negative) Ur Phencyclidine Scrn (Negative) Ur Amphetamines Screen (Negative) U Methamphetamines Scrn (Negative) Ur MDMA Scrn (Ecstasy) (Negative) U Benzodiazepines Scrn (Negative) Urine Cocaine Screen (Negative) U Marijuana (THC) Screen (Negative) Ethyl Alcohol < 10 ( - 10) mg/dL SARS-CoV-2 (PCR) Negative (Negative) Urine Dip Bedside Urine Glucose Negative Bedside Urine Bilirubin - Negative Bedside Urine Ketone - Negative Urine Specific [place] 1.020 Bedside Urine Occult Blood - Negative Bedside Urine pH 6.0 Bedside Urine Protein +/- 15 Bedside Urine Urobilinogen - Negative Bedside Urine Nitrite - Negative Bedside Urine Leukocytes - Negative Esterase Discharge Plan Departure Patient Disposition: Xfer Psychiatric Hosp Clinical Impression: Acute psychosis <Andrew Shell, DO - Last Filed: 04/28/21 07:22> Cosign ED Attending Cosignature Attestation: Dr Shell Co-Sign Statement: I was available for consultation during this patient's emergency department visit. This chart is signed by myself for administrative purposes only. I did not have direct contact with this patient during this visit. They were seen independently by the APC.
[2021-04-27 13:46] LABS: Free T4, Direct Thyroxine 1.37 ng/dL (0.78-2.19)
[2021-04-27 13:48] LABS: COVID19 -Nasal RAPID Negative (Negative)
[2021-04-27 14:00] LABS: Thyroid Stimulating Hormone 1.24 uIU/mL (0.47-4.68)
[2021-04-27] MEDS: QUETIAPINE 100 MG TABLET 400 MG PO (14:29)
[2021-04-27 16:08] VITALS: BP 135/70; PULSE 112; TEMP 36.8; O2SAT 99
--- NOTE | 2021-04-27 16:34 | CM.SWNOTE ---
Addendum entered by Jessica Pearson 04/27/21 17:21: LVN Note LVN receives call from [facility], it is reported that patient is accepted at [facility] with an arrival time of 2230. Accept[address] provider [address] Dr. Matilda Amaya. Nurse to Nurse # [phone] JESSIE Mcginnis Original Note: LVN calls [facility] for bed census. LVN calls [facility], it is reported that they do not have any male co-occurring beds at this time and it is unknown when they will have openings. LVN calls [facility], it is reported that they have beds and can review patient. LVN faxes clinicals for review. [facility] calls back and requests an EKG, when EKG is faxed [facility] reports that the QTC level must be at or below 450 and patient's current level is 469. LVN calls [facility], it is reported that they can review patient but they only have one bed. LVN faxes clinicals for review. LVN calls [facility], it is reported that they can review patient. LVN faxes clinicals. [facility] calls back and reports that patient is currently primary a substance use patient and they cannot accent him. LVN calls [facility] intake and leaves and faxes referral for review. Plan: LVN to continue to seek voluntary inpatient bed for patient. JESSIE Mcginnis
--- NOTE | 2021-04-27 19:32 | PC.NURSE ---
SW at bedside, providing snack/water.
[2021-04-27 20:32] VITALS: BP 131/76; PULSE 94; RESP 16; TEMP 36.9; O2SAT 100
== END 2021-04-27 20:49 ==
PROVIDERS: Emergency Provider Student in an Organized Health Care Education/Training Program
DX: F15.959 Other stimulant use, unspecified with stimulant-induced psychotic disorder, unspecified (principal); R03.0 Elevated blood-pressure reading, without diagnosis of hypertension; Z20.822 Contact with and (suspected) exposure to COVID-19
CPT/HCPCS: 80053; 80305; 80320; 80329; 81003; 81015; 84439; 84443; 85025; 87635; 93005; 96372; 99284; C9803; G0480; J2060

== ENCOUNTER 2022-05-27 15:44 | Emergency (ER) | payer OTHER, MEDICAID, SELFPAY ==
[2022-05-27 15:47] VITALS: BP 140/108; PULSE 94; RESP 18; TEMP 36.6; O2SAT 98; BMI 20.9
--- NOTE | 2022-05-27 19:53 | CM.SWNOTE ---
FERMENTATION OPERATOR Note Patient presents to ED for check up Per EMR, patient has hx of Bipolar Disorder and Polysubstance use. In triage patient reports he is out of his Subtox and Zyprexa medication and is seeking placement at [facility]. Per Michelle, patient has hx of 25 ED encounters within the last 12 months. Per EMR, patient has hx of voluntary BH dual dx stay at [facility] in 04/2022, and hx of previous inpatient stays at [facility]. Per EMR patient is homeless and resides on Tuesday, a majority of ED encounters are at [facility] on Tuesday. FERMENTATION OPERATOR attempts to enter room to meet with patient and patient is sleeping. Patient is not medically clear and has not been seen by provider. FERMENTATION OPERATOR to f/u with patient upon further medical assessment if patient continues to board in ED tomorrow. Jessica Pearson, SHIRRING MACHINE OPERATOR
[2022-05-27 21:14] VITALS: BP 130/67; PULSE 72; O2SAT 98
[2022-05-27 21:30] VITALS: BP 120/55; PULSE 72; O2SAT 99
--- NOTE | 2022-05-27 21:47 | PC.NURSE ---
Patient pants, shirt and two coats placed in patient belonging bags. Bags were labeled with the patient information and placed in emergency room locked cabinet. Patient given paper scrubs tops and bottoms. Patient provided snack; half a egg salad sandwhich, vanilla pudding cup and water.
--- NOTE | 2022-05-27 21:55 | ED.GENADULT ---
HPI - General Adult General Chief complaint: Toxicology Problem Stated complaint: Checkup Time Seen by Provider: 05/27/22 21:11 Source: patient Mode of arrival: Ambulatory Limitations: no limitations History of Present Illness HPI narrative: This is a reported history of, methamphetamine abuse and patient states other drugs as well, alcohol use who presents seeking placement for his bipolar as well as substance abuse. Patient denies active suicidal ideation or intent to harm himself or others. Does state his bipolar is not well controlled and he is off medication currently. States his last use of alcohol was at noon earlier today, he states he is had hallucinations but no seizures in the past with alcohol withdrawal. States he has not used any other substances for the last several days. He has been at [facility] before and had multiple inpatient stays in the past. He denies any other symptoms currently. Patient is not particularly forthcoming with history on examination. Related Data Home Medications Medication Instructions Recorded Confirmed quetiapine 400 mg tablet 400 mg PO DAILY 04/27/21 04/27/21 Allergies Allergy/AdvReac Type Severity Reaction Status Date / Time Sulfa (Sulfonamide Allergy Verified 04/27/21 12:22 Antibiotics) Review of Systems Review of Systems ROS Unobtainable: All systems reviewed & are unremarkable except as noted in HPI and below Patient History Medical History Homeless single person Polysubstance abuse Substance abuse Social History Smoking Status: Current every day smoker substance use type: methamphetamine Smoking Status: Current every day smoker alcohol intake frequency: 0-2 drinks per day Substance Use Type: heroin and amphetamines Exam Narrative Exam Narrative: GENERAL: Alert and oriented x three, mild distress. HEENT: Head normocephalic, atraumatic, EOMI, pupils reactive, face symmetric, moist mucous membranes NECK: Supple, full range of motion CARDIOVASCULAR: Regular rate and rhythm without murmurs, rubs or gallops. RESPIRATORY: Breath sounds equal bilaterally, no wheezes rales or rhonchi. ABDOMEN: Soft, nontender. Normoactive bowel sounds all 4 quadrants. No guarding or rebound, rigidity, no mass : No CVA tenderness EXTREMITIES: Normal range of motion, no clubbing or edema. Neurovascularly intact NEUROLOGICAL: Cranial nerves II through XII grossly intact. Moving all extremities SKIN: Warm, dry, no petechiae, no rashes or lesions. PSYCH: Patient states bipolar symptoms are worsened, denies suicidal intent or ideation currently, no thoughts of harming others currently. He does admit to substance abuse Initial Vital Signs Initial Vital Signs: Vital Signs Temperature 97.9 F 05/27/22 15:47 Pulse Rate 94 H 05/27/22 15:47 Respiratory Rate 18 05/27/22 15:47 Blood Pressure 140/108 H 05/27/22 15:47 Pulse Oximetry 98 05/27/22 15:47 Oxygen Delivery Method 05/27/22 15:47 Course Orders Ordered: ED Orders 05/27/22 22:25 Urine Culture Stat Urine Drug Screen, Rapid Stat Urine Microscopic Stat 05/27/22 23:40 COVID19 -Nasal RAPID/Pre-Proc Stat Vital Signs Vital signs: Vital Signs - 8 hr 05/27/22 23:43 05/28/22 00:00 05/28/22 00:06 Pulse Rate 78 73 75 Respiratory Rate Blood Pressure Pulse Oximetry 100 99 99 Oxygen Delivery Method 05/28/22 00:06 05/28/22 00:15 05/28/22 00:15 Pulse Rate 64 Respiratory Rate Blood Pressure 130/84 122/82 Pulse Oximetry 99 Oxygen Delivery Method 05/28/22 00:30 05/28/22 00:31 05/28/22 00:31 Pulse Rate 64 57 L Respiratory Rate Blood Pressure 123/80 Pulse Oximetry 99 100 Oxygen Delivery Method 05/28/22 00:45 05/28/22 00:45 05/28/22 01:00 Pulse Rate 62 Respiratory Rate Blood Pressure 121/79 122/79 Pulse Oximetry 100 Oxygen Delivery Method 05/28/22 01:00 05/28/22 01:15 05/28/22 01:15 Pulse Rate 62 69 Respiratory Rate Blood Pressure 125/83 Pulse Oximetry 100 100 Oxygen Delivery Method 05/28/22 01:30 05/28/22 01:30 05/28/22 01:45 Pulse Rate 69 68 Respiratory Rate Blood Pressure 124/83 Pulse Oximetry 100 100 Oxygen Delivery Method 05/28/22 01:45 05/28/22 06:10 05/28/22 02:00 Pulse Rate 54 L 67 Respiratory Rate 16 20 Blood Pressure 127/85 144/83 H 128/87 Pulse Oximetry 98 100 Oxygen Delivery Method Room Air 05/28/22 02:30 05/28/22 03:00 05/28/22 03:30 Pulse Rate 63 68 62 Respiratory Rate 20 18 Blood Pressure 129/80 124/67 128/77 Pulse Oximetry 100 100 100 Oxygen Delivery Method Room Air Room Air 05/28/22 04:00 05/28/22 04:30 05/28/22 06:03 Pulse Rate 59 L 71 55 L Respiratory Rate 20 20 20 Blood Pressure 125/80 127/73 144/83 H Pulse Oximetry 100 100 100 Oxygen Delivery Method Room Air Room Air Room Air Medical Decision Making Lab Data Result diagrams: 05/28/22 05:00 05/28/22 00:31 Labs: Lab Results 05/27/22 05/27/22 05/27/22 Range/Units 22:25 22:25 23:40 WBC (4.5-11.0) X10^3/uL RBC (4.5-5.9) X10^6/uL Hgb (13.5-17.5) g/dL Hct (41-53) % MCV (80-100) fL MCH (26-34) PG MCHC (30-36) % RDW (11.6-14.8) % Plt Count (150-400) X10^3/uL Neut % (Auto) (50-75) % Lymph % (Auto) (25-40) % [place] % (Auto) (3-14) % Eos % (Auto) (2-4) % Baso % (Auto) (0-2) % Neut # (Auto) (0126-9753) /uL Lymph # (Auto) (3962-6035) /uL [place] # (Auto) (0-900) /uL Eos # (Auto) (0-450) /uL Baso # (Auto) (0-100) /uL Sodium (137-145) mmol/L Potassium (3.4-5.1) mmol/L Chloride (98-107) mmol/L Carbon Dioxide (22-32) mmol/L BUN (9-20) mg/dL Creatinine (0.66-1.25) mg/dL Estimated GFR (>60) mL/min BUN/Creatinine Ratio (6-22) Glucose (70-100) mg/dL Calcium (8.4-10.2) mg/dL Total Bilirubin (0.2-1.3) mg/dL AST (17-59) IU/L ALT (<50) IU/L Alkaline Phosphatase (38-126) U/L Total Protein (6.3-8.2) g/dL Albumin (3.5-5.0) g/dL Globulin (1.7-4.1) g/dL Albumin/Globulin Ratio (1.0-2.8) TSH (0.47-4.68) uIU/mL Urine RBC 1-5/hpf (0-5/HPF) Urine WBC None seen (0-5/HPF) Urine Bacteria None seen (None) Micro UA Comment * Salicylates (<20) mg/dL U Opiates 300ng/mL cut Negative (Negative) Ur Oxycodone Screen Negative (Negative) Urine Methadone Screen Negative (Negative) Acetaminophen (10-30) ug/mL Ur Barbiturates Screen Negative (Negative) U Tricyclic Antidepress Negative (Negative) Ur Phencyclidine Scrn Negative (Negative) Ur Amphetamines Screen Positive H (Negative) U Methamphetamines Scrn Positive H (Negative) Ur MDMA Scrn (Ecstasy) Negative (Negative) U Benzodiazepines Scrn Negative (Negative) Urine Cocaine Screen Negative (Negative) U Marijuana (THC) Screen Negative (Negative) Ethyl Alcohol ( - 10) mg/dL SARS-CoV-2 (PCR) Negative (Negative) 05/28/22 05/28/22 05/28/22 Range/Units 00:31 00:31 05:00 WBC 6.7 (4.5-11.0) X10^3/uL RBC 4.50 (4.5-5.9) X10^6/uL Hgb 13.0 L (13.5-17.5) g/dL Hct 38.9 L (41-53) % MCV 86.5 (80-100) fL MCH 29.0 (26-34) PG MCHC 33.5 (30-36) % RDW 14.7 (11.6-14.8) % Plt Count 131 L (150-400) X10^3/uL Neut % (Auto) 63.7 (50-75) % Lymph % (Auto) 26.7 (25-40) % [place] % (Auto) 6.4 (3-14) % Eos % (Auto) 2.5 (2-4) % Baso % (Auto) 0.7 (0-2) % Neut # (Auto) 4300 (8096-8633) /uL Lymph # (Auto) 1800 (4038-7551) /uL [place] # (Auto) 400 (0-900) /uL Eos # (Auto) 200 (0-450) /uL Baso # (Auto) 0 (0-100) /uL Sodium 143 (137-145) mmol/L Potassium 3.9 (3.4-5.1) mmol/L Chloride 111 H (98-107) mmol/L Carbon Dioxide 22 (22-32) mmol/L BUN 20 (9-20) mg/dL Creatinine 0.72 (0.66-1.25) mg/dL Estimated GFR > 60 (>60) mL/min BUN/Creatinine Ratio 27.8 H (6-22) Glucose 102 H (70-100) mg/dL Calcium 8.8 (8.4-10.2) mg/dL Total Bilirubin 0.3 (0.2-1.3) mg/dL AST 31 (17-59) IU/L ALT 33 (<50) IU/L Alkaline Phosphatase 106 (38-126) U/L Total Protein 7.7 (6.3-8.2) g/dL Albumin 4.2 (3.5-5.0) g/dL Globulin 3.5 (1.7-4.1) g/dL Albumin/Globulin Ratio 1.2 (1.0-2.8) TSH 2.07 (0.47-4.68) uIU/mL Urine RBC (0-5/HPF) Urine WBC (0-5/HPF) Urine Bacteria (None) Micro UA Comment Salicylates < 1.0 (<20) mg/dL U Opiates 300ng/mL cut (Negative) Ur Oxycodone Screen (Negative) Urine Methadone Screen (Negative) Acetaminophen < 10 (10-30) ug/mL Ur Barbiturates Screen (Negative) U Tricyclic Antidepress (Negative) Ur Phencyclidine Scrn (Negative) Ur Amphetamines Screen (Negative) U Methamphetamines Scrn (Negative) Ur MDMA Scrn (Ecstasy) (Negative) U Benzodiazepines Scrn (Negative) Urine Cocaine Screen (Negative) U Marijuana (THC) Screen (Negative) Ethyl Alcohol < 10 ( - 10) mg/dL SARS-CoV-2 (PCR) (Negative) Urine Dip Bedside Urine Glucose Negative Bedside Urine Bilirubin - Negative Bedside Urine Ketone - Negative Urine Specific [place] 1.030 Bedside Urine Occult Blood ++ Bedside Urine pH 6.0 Bedside Urine Protein +/- 15 Bedside Urine Nitrite - Negative Bedside Urine Leukocytes - Negative Esterase Point of care testing: Urine Dip Bedside Urine Glucose Negative Bedside Urine Bilirubin - Negative Bedside Urine Ketone - Negative Urine Specific [place] 1.030 Bedside Urine Occult Blood ++ Bedside Urine pH 6.0 Bedside Urine Protein +/- 15 Bedside Urine Nitrite - Negative Bedside Urine Leukocytes - Negative Esterase MDM Narrative Medical decision making narrative: This is a 37-year-old male requesting voluntary placement for detox as well as mental health denying active suicidal ideation. Patient medically cleared in the department. He does not appear to be in significant draws at this point but IV access was obtained in case patient needs intervention. Patient signed out to Dr. Gar while seeking potential placement. Discharge Plan Departure Patient Disposition: Left Against Medical Advice Clinical Impression: Left against medical advice Prescriptions: No Action quetiapine 400 mg tablet 400 mg PO DAILY Stand Alone Forms: Against Medical Advice
[2022-05-27 22:51] LABS: UR Morphine/Opiate cutoff 300 Negative (Negative); Ur Creatinine 20 (Normal); Ur Specific Gravity 1.025 (Normal); Urine Amphetamines Positive (Negative); Urine Barbiturates Negative (Negative); Urine Benzodiazepines Negative (Negative); Urine Cocaine Negative (Negative); Urine MDMA Negative (Negative); Urine Methadone Negative (Negative); Urine Methamphetamines Positive (Negative); Urine Oxycodone Negative (Negative); Urine Phencyclidine Negative (Negative); Urine Tetrahydrocannabinol Negative (Negative); Urine Tricyclic Antidepressant Negative (Negative); Urine pH 5 (Normal)
[2022-05-27 23:09] LABS: Bacteria Urine None Seen; RBC Urine 1-5/HPF (0-5/HPF); WBC Urine None Seen (0-5/HPF)
[2022-05-27 23:43] VITALS: PULSE 78; O2SAT 100
[2022-05-28] VITALS (18 sets, daily range): BP systolic 121–144; BP diastolic 67–87; PULSE 54–75; RESP 16–20; O2SAT 98–100
[2022-05-28 00:09] LABS: COVID19 -Nasal RAPID Negative (Negative)
[2022-05-28 00:53] LABS: Alanine Aminotransferase 33 IU/L (<50); Albumin 4.2 g/dL (3.5-5.0); Albumin Globulin Ratio 1.2 (1.0-2.8); Alkaline Phosphatase 106 U/L (38-126); Aspartate Aminotransferase 31 IU/L (17-59); BUN Creatinine Ratio 27.8 (6-22); Bilirubin Total 0.3 mg/dL (0.2-1.3); Blood Urea Nitrogen 20 mg/dL (9-20); Calcium 8.8 mg/dL (8.4-10.2); Carbon Dioxide 22 mmol/L (22-32); Chloride 111 mmol/L (98-107); Estimated Glomerular Filt Rate > 60 mL/min (>60); Globulin 3.5 g/dL (1.7-4.1); Glucose 102 mg/dL (70-100); HEMOLYSIS 20 (0-50); Potassium 3.9 mmol/L (3.4-5.1); Sodium 143 mmol/L (137-145); Total Protein 7.7 g/dL (6.3-8.2)
[2022-05-28 01:43] LABS: TSH w/ Reflex to FT4 2.07 uIU/mL (0.47-4.68)
[2022-05-28 01:51] LABS: Acetaminophen < 10 ug/mL (10-30); Ethanol (ETOH) < 10 mg/dL; Salicylate < 1.0 mg/dL (<20)
[2022-05-28 05:29] LABS: Add Manual Diff / Slide Review NO; Basophils Absolute Auto 0 /uL (0-100); Basophils Percent Auto 0.7 % (0-2); Eosinophils Absolute Auto 200 /uL (0-450); Eosinophils Percent Auto 2.5 % (2-4); Hematocrit 38.9 % (41-53); Lymphocytes Absolute Auto 1800 /uL (1100-4500); Lymphocytes Percent Auto 26.7 % (25-40); Mean Corpuscular HGB Conc 33.5 % (30-36); Mean Corpuscular Volume 86.5 fL (80-100); Monocytes Absolute Auto 400 /uL (0-900); Monocytes Percent Auto 6.4 % (3-14); Neutrophils Absolute Auto 4300 /uL (1500-7000); Neutrophils Percent Auto 63.7 % (50-75); Platelet Count 131 X10^3/uL (150-400); Red Cell Distribution Width 14.7 % (11.6-14.8); White Blood Cell Count 6.7 X10^3/uL (4.5-11.0)
== END 2022-05-28 09:20 | disposition left against medical advice (07) ==
PROVIDERS: Emergency Medicine; Emergency Provider Emergency Medicine
DX: F15.10 Other stimulant abuse, uncomplicated (principal); F31.9 Bipolar disorder, unspecified; Z53.29 Procedure and treatment not carried out because of patient's decision for other reasons; Z20.822 Contact with and (suspected) exposure to COVID-19
CPT/HCPCS: 80053; 80305; 80320; 80329; 81003; 81015; 84443; 85025; 87086; 87635; 99282; 99283; C9803; G0480